=== PATIENT | female | born 1965 | race Caucasian/White ===

== ENCOUNTER → 2020-08-03 10:28 | Outpatient (BNVA) | payer OTHER, SELFPAY | PROVIDERS: PCP Internal Medicine; Referring Provider Internal Medicine; Visit Provider Internal Medicine | DX: J44.9 Chronic obstructive pulmonary disease, unspecified (principal); R09.02 Hypoxemia; Z99.81 Dependence on supplemental oxygen; Z79.51 Long term (current) use of inhaled steroids | CPT/HCPCS: 99214 ==

== ENCOUNTER 2020-08-27 10:56 | Emergency (ER) | payer OTHER, SELFPAY ==
[2020-08-27 10:59] VITALS: BP 130/80; BP 140/87; PULSE 89; PULSE 92; RESP 20; TEMP 37; O2SAT 95; O2SAT 97; BMI 24.7
--- NOTE | 2020-08-27 11:00 | ECG_ITS ---
Test Reason : SOB Blood Pressure : / mmHG Vent. Rate : 083 BPM Atrial Rate : 083 BPM P-R Int : 160 ms QRS Dur : 102 ms QT Int : 396 ms P-R-T Axes : 069 -63 054 degrees QTc Int : 465 ms Normal sinus rhythm Left axis deviation Incomplete right bundle branch block Abnormal ECG When compared with ECG of 18-JAN-2017 13:31, No significant change was found Referred By: Yoko Sharp Electronically Signed By:JONI ZUNIGA MD
--- NOTE | 2020-08-27 11:00 | ED.SOB ---
HPI - SOB/Dyspnea General Chief Complaint: Dyspnea Stated Complaint: SOB, ASTHMA, COPD Time Seen by Provider: 08/27/20 11:00 Source: patient Mode of arrival: ambulatory Limitations: no limitations History of Present Illness MD elicited complaint: shortness of breath and asthma attack Pertinent past history: COPD and asthma Onset (ago): day(s) (since 2am today) Timing: constant Severity: moderate Exacerbating factors: coughing Relieving factors: oxygen and bronchodilators Known history of: COPD and asthma Associated symptoms: cough Treatment prior to arrival: oxygen and bronchodilator (took a treatment at home, EMS noted 96% on RA) Related Data Home Medications Medication Instructions Recorded Confirmed ipratropium 0.5 mg-albuterol 3 mg ml INHALATION Q6H PRN 07/17/20 08/03/20 (2.5 mg base)/3 mL nebulization soln meclizine 25 mg tablet 25 mg PO DAILY PRN 07/17/20 08/03/20 mometasone-formoterol HFA 200 2 puff INHALATION BID 07/17/20 08/03/20 mcg-5 mcg/actuation aerosol inhaler atenolol 25 mg tablet 25 mg PO DAILY 08/03/20 08/03/20 cholecalciferol (vitamin D3) 25 25 mcg PO DAILY 08/03/20 08/03/20 mcg (1,000 unit) tablet sumatriptan succinate 25 mg tablet 25 mg PO DAILY PRN 08/03/20 08/03/20 Previous Rx's Medication Instructions Recorded albuterol sulfate 90 mcg/actuation 2 puff PO Q6H PRN 30 Days #18 g 08/04/20 aerosol inhaler albuterol sulfate 1.25 mg INHALATION Q4-6H PRN #75 ml 08/27/20 azithromycin See Rx Instructions .ROUTE 08/27/20 .COMPLEX #6 tab prednisone 40 mg PO DAILY 5 Days #10 tab 08/27/20 Allergies Allergy/AdvReac Type Severity Reaction Status Date / Time ibuprofen [IBUPROFEN] Allergy Severe ASTHMA , Verified 08/03/20 10:52 shortness of breath amoxicillin Allergy Unknown shortness Verified 08/03/20 10:52 of breath aspirin [ASPIRIN] Allergy Unknown ASTHMA, Verified 08/03/20 10:52 shortness of breath latex [LATEX] Allergy Unknown UNKNOWN Verified 08/03/20 10:52 penicillamine Allergy Unknown Unknown Verified 08/03/20 10:52 montelukast AdvReac Severe headaches Verified 08/03/20 10:57 Review of Systems Review of Systems: Constitutional : No Fever, No Chills ENT/Mouth : No sore throat, No Rhinorrhea, No Swallowing Difficulty Eyes: No Eye Pain, No Swelling, No Redness Cardiovascular : No Chest Pain, positive SOB, No Orthopnea, no Edema Respiratory : No Cough, No Sputum, No Wheezing, positive dyspnea Gastrointestinal : No Nausea, No Vomiting, No Diarrhea, No abdominal Pain, No Hematochezia, No Melena Genitourinary : No Dysuria, No Urinary Frequency, No Hematuria Musculoskeletal : No joint pain, No Myalgias Skin : No Skin Lesions, No rash Neuro : No Weakness, No Numbness, No Dizziness, No Headache Psych : No Anxiety/Panic, No Depression Heme/Lymph: No Bruising, No Lymphadenopathy Endocrine : No Polyuria, No Polydipsia All other systems reviewed and are negative [facility] Past Medical History Medical History COPD (chronic obstructive pulmonary disease) Hypoxemia requiring supplemental oxygen Social History Social History (Updated 08/27/20 @ 11:04 by Yoko Sharp DO) Smoking Status: Never smoker Smoked in Last 30 Days: No Use of substances other than those prescribed or required for medical reasons: No Advance Directives: No Advance Directives Information Provided: Yes Physical Exam Vital Signs: Vital Signs: Last Vital Signs Temp 98.9 F 08/27/20 11:55 Pulse 95 08/27/20 11:55 Resp 16 08/27/20 11:55 BP 122/69 08/27/20 11:55 Pulse Ox 99 08/27/20 11:55 Body Mass Index 24.7 Appearance: Alert. Oriented X3. No acute distress. slight anxiety Eyes: Pupils equal, round and reactive to light. ENT: Pharynx normal. Neck: Normal inspection. Neck supple. CVS: Normal heart rate and rhythm. Pulses normal. Respiratory: No respiratory distress. Breath sounds decreased Abdomen: Soft and nontender. Skin: Skin warm and dry. Normal skin color. Normal skin turgor. Extremities: No lower extremity edema. No calf ttp Neuro: Oriented X 3. No motor deficit. No sensory deficit. Course Course Course Narrative: patient feels much better at this time 94% on RA baseline home 91% walking sat 94% MDM - SOB/Dyspnea MDM Narrative Medical decision making narrative: 54 yo female with COPD and asthma here with feeling dyspnea since 2am, no recent URI or sick contacts, no steroids at home, will need labs, neb treatment, EKG, CXR, IV steroids - very mild anticipate improvement and DC home. Reports consistent with her typical asthma - no pleuritic chest pain, no signs of DVT doubt PE, doubt ACS Lab Data Result diagrams: 08/27/20 11:12 08/27/20 11:12 Labs: Lab Results 08/27/20 08/27/20 08/27/20 Range/Units 11:12 11: 11:12 WBC 8.2 (4.8-10.8) X10*3/uL RBC 4.41 (4.20-5.50) X10*6/uL Hgb 13.8 (12.0-16.0) g/dl Hct 41.8 (37-47) % MCV 94.8 (80-98) fL MCH 31.3 (27.0-33.0) pg MCHC 33.0 (31.0-35.0) g/dl RDW 11.8 (11.0-16.0) % Plt Count 342 (160-400) X10*3/uL MPV 9.1 L (9.4-12.3) fL Immature Gran % (Auto) 0.1 (0.0-0.4) % Neut % (Auto) 50.9 (45-73) % Lymph % (Auto) 33.5 (20-40) % [place] % (Auto) 7.1 (2-11) % Eos % (Auto) 7.8 H (0-4) % Baso % (Auto) 0.6 (0-2) % Lymph # (Auto) 2.7 (1.2-4.9) X10*3/uL [place] # (Auto) 0.6 (0.1-1.2) X10*3/uL Eos # (Auto) 0.6 H (0.0-0.4) X10*3/uL Baso # (Auto) 0.1 (0.0-0.2) X10*3/uL Abs Immat Gran (auto) 0.01 (0.00-0.03) X10*3/uL Absolute Neuts (auto) 4.2 (2.0-8.3) X10*3/uL Absolute Nucleated RBC 0.000 (0.0-0.012) X10*3/uL Nucleated RBC % (auto) 0.0 (0.0-0.2) /100WBC Hold Blue Top SEE NOTE Sodium 142 (135-145) mmol/L Potassium 4.1 (3.3-5.1) mmol/l Chloride 105 (96-108) mmol/L Carbon Dioxide 30 H (22-29) mmol/L Anion Gap 11 L (12-20) BUN 11 (9-16) mg/dL Creatinine 0.76 (0.5-1.4) mg/dL Estim Creat Clear Calc 75.2 Estimated GFR > 60 Random Glucose 84 (60-115) mg/dL Calcium 9.1 (8.4-10.2) mg/dL Magnesium 2.1 (1.6-2.6) mg/dL Total Bilirubin 0.4 (0.0-1.0) mg/dL Direct Bilirubin 0.2 (0.0-0.5) mg/dL AST 32 H (5-31) U/L ALT 38 H (0-31) U/L Alkaline Phosphatase 89 (39-117) U/L Troponin I High Sens (<3.5-17.0) ng/L B-Natriuretic Peptide (<100) pg/mL Total Protein 6.7 (6.5-8.0) g/dL Albumin 4.3 (3.5-5.0) g/dL 08/27/20 Range/Units 11:12 WBC (4.8-10.8) X10*3/uL RBC (4.20-5.50) X10*6/uL Hgb (12.0-16.0) g/dl Hct (37-47) % MCV (80-98) fL MCH (27.0-33.0) pg MCHC (31.0-35.0) g/dl RDW (11.0-16.0) % Plt Count (160-400) X10*3/uL MPV (9.4-12.3) fL Immature Gran % (Auto) (0.0-0.4) % Neut % (Auto) (45-73) % Lymph % (Auto) (20-40) % [place] % (Auto) (2-11) % Eos % (Auto) (0-4) % Baso % (Auto) (0-2) % Lymph # (Auto) (1.2-4.9) X10*3/uL [place] # (Auto) (0.1-1.2) X10*3/uL Eos # (Auto) (0.0-0.4) X10*3/uL Baso # (Auto) (0.0-0.2) X10*3/uL Abs Immat Gran (auto) (0.00-0.03) X10*3/uL Absolute Neuts (auto) (2.0-8.3) X10*3/uL Absolute Nucleated RBC (0.0-0.012) X10*3/uL Nucleated RBC % (auto) (0.0-0.2) /100WBC Hold Blue Top Sodium (135-145) mmol/L Potassium (3.3-5.1) mmol/l Chloride (96-108) mmol/L Carbon Dioxide (22-29) mmol/L Anion Gap (12-20) BUN (9-16) mg/dL Creatinine (0.5-1.4) mg/dL Estim Creat Clear Calc Estimated GFR Random Glucose (60-115) mg/dL Calcium (8.4-10.2) mg/dL Magnesium (1.6-2.6) mg/dL Total Bilirubin (0.0-1.0) mg/dL Direct Bilirubin (0.0-0.5) mg/dL AST (5-31) U/L ALT (0-31) U/L Alkaline Phosphatase (39-117) U/L Troponin I High Sens < 3.5 (<3.5-17.0) ng/L B-Natriuretic Peptide 13 (<100) pg/mL Total Protein (6.5-8.0) g/dL Albumin (3.5-5.0) g/dL ECG Data Attestation: I personally reviewed and interpreted this ECG as follows: ECG interpretation date: 08/27/20 ECG interpretation time: 11:23 Interpretation: Rate: 83 Rhythm: NSR [place]: left Normal P waves. Normal MARIANO. incomplete RBBB ST T wave : normal qTC: normal prior studies: no acute ischemia, unchanged 2017 The study has been interpreted contemporaneously by me. . Discharge Plan Discharge Clinical Impression: COPD (chronic obstructive pulmonary disease) Qualifiers: COPD type: COPD with acute exacerbation Qualified Code(s): J44.1 - Chronic obstructive pulmonary disease with (acute) exacerbation Patient Disposition: Home, Self-Care Instructions: COPD (Chronic Obstructive Pulmonary Disease) (ED) Additional Instructions: return to ED for any worsening symptoms or concerns Prescriptions: New azithromycin 500 mg tablet See Rx Instructions .ROUTE .COMPLEX Qty: 6 RF: 0 albuterol sulfate 2.5 mg /3 mL (0.083 %) solution for nebulization 1.25 mg inhalation Q4-6H PRN (Reason: shortness of breath or wheezing) Qty: 75 RF: 0 prednisone 20 mg tablet 40 mg PO DAILY 5 Days Qty: 10 RF: 0 No Action albuterol sulfate 90 mcg/actuation HFA aerosol inhaler 2 puff PO Q6H PRN (Reason: shortness of breath or wheezing) 30 Days Qty: 18 RF: 1 Dulera 200-5 mcg/actuation HFA aerosol inhaler 2 puff inhalation BID RF: 0 ipratropium-albuterol 0.5 mg-3 mg(2.5 mg base)/3 mL solution for nebulization inhalation Q6H PRNRF: 0 meclizine 25 mg tablet 25 mg PO DAILY PRNRF: 0 cholecalciferol (vitamin D3) 25 mcg (1,000 unit) tablet 25 mcg PO DAILY RF: 0 sumatriptan succinate 25 mg tablet 25 mg PO DAILY PRNRF: 0 atenolol 25 mg tablet 25 mg PO DAILY RF: 0 Referrals: Michael Rosen MD [Primary Care Provider] - 2 days (if not better)
--- NOTE | 2020-08-27 11:01 | XR_ITS ---
EXAMINATION: XR CHEST CLINICAL INFORMATION: Dyspnea COMPARISON: March 27, 2020 TECHNIQUE: AP portable view of the chest was obtained. FINDINGS: There is mild hyperinflation. No acute parenchymal disease, pneumothorax, or pleural effusion. Heart normal size. No evidence of pulmonary edema. XR/XR chest 1V IMPRESSION: No acute disease.
[2020-08-27] MEDS: Albuterol Sulfate (0.083%) 2.5 MG/3 ML VIAL.NEB 5 MG INHALE (11:15)
[2020-08-27] MEDS: methylPREDNISolone Sod Succ/PF 125 MG/2 ML VIAL 60 MG IVPUSH (11:17)
[2020-08-27 11:26] LABS: MANUAL DIFF FLAG NO
[2020-08-27 11:27] VITALS: PULSE 95; RESP 20; TEMP 37; O2SAT 96
[2020-08-27 11:27] LABS: Basophils Absolute Auto 0.1 X10*3/uL (0.0-0.2); Basophils Percent Auto 0.6 % (0-2); Eosinophils Absolute Auto 0.6 X10*3/uL (0.0-0.4); Eosinophils Percent Auto 7.8 % (0-4); Hematocrit 41.8 % (37-47); Hemoglobin 13.8 g/dl (12.0-16.0); Imm Gran Abs Auto 0.01 X10*3/uL (0.00-0.03); Imm Gran Pct Auto 0.1 % (0.0-0.4); Lymphocytes Absolute Auto 2.7 X10*3/uL (1.2-4.9); Lymphocytes Percent Auto 33.5 % (20-40); Mean Corpuscular Hemoglobin 31.3 pg (27.0-33.0); Mean Corpuscular Volume 94.8 fL (80-98); Mean Platelet Volume 9.1 fL (9.4-12.3); Monocytes Absolute Auto 0.6 X10*3/uL (0.1-1.2); Monocytes Percent Auto 7.1 % (2-11); Neutrophils Absolute Auto 4.2 X10*3/uL (2.0-8.3); Neutrophils Percent Auto 50.9 % (45-73); Platelet Count 342 X10*3/uL (160-400); Red Blood Count 4.41 X10*6/uL (4.20-5.50); Red Cell Distribution Width 11.8 % (11.0-16.0); White Blood Count 8.2 X10*3/uL (4.8-10.8)
[2020-08-27 11:49] LABS: Alanine Aminotransferase 38 U/L (0-31); Albumin Level 4.3 g/dL (3.5-5.0); Alkaline Phosphatase 89 U/L (39-117); Anion Gap 11 (12-20); Aspartate Amino Transferase 32 U/L (5-31); Bilirubin Direct 0.2 mg/dL (0.0-0.5); Bilirubin Total 0.4 mg/dL (0.0-1.0); Blood Urea Nitrogen 11 mg/dL (9-16); Calcium 9.1 mg/dL (8.4-10.2); Carbon Dioxide 30 mmol/L (22-29); Chloride 105 mmol/L (96-108); Creatinine Clr Calc Pharmacy 75.2; Estimated Glomerular Filt Rate > 60; Glucose Random 84 mg/dL (60-115); Magnesium 2.1 mg/dL (1.6-2.6); Potassium 4.1 mmol/l (3.3-5.1); Sodium 142 mmol/L (135-145); Total Protein 6.7 g/dL (6.5-8.0)
[2020-08-27 11:55] VITALS: BP 122/69; PULSE 95; RESP 16; TEMP 37.2; O2SAT 99
[2020-08-27 11:56] LABS: B Type Natriuretic Peptide 13 pg/mL (<100); Troponin-I High Sensitivity < 3.5 ng/L (<3.5-17.0)
[2020-08-27 13:49] VITALS: BP 140/84; PULSE 84; RESP 18; TEMP 37; O2SAT 98
== END 2020-08-27 13:54 | disposition home or self-care (01) ==
PROVIDERS: Emergency Provider Emergency Medicine; PCP Internal Medicine
DX: J44.1 Chronic obstructive pulmonary disease with (acute) exacerbation (principal); R06.02 Shortness of breath; Z79.899 Other long term (current) drug therapy; Z20.828 Contact with and (suspected) exposure to other viral communicable diseases
CPT/HCPCS: 36415; 71045; 80048; 80076; 83735; 83880; 84484; 85025; 93005; 94640; 96374; 99284; J2930; U0003

== ENCOUNTER → 2020-08-31 10:21 | Outpatient (BNVA) | payer OTHER, SELFPAY | PROVIDERS: PCP Internal Medicine; Visit Provider Internal Medicine | DX: J44.9 Chronic obstructive pulmonary disease, unspecified (principal); R09.02 Hypoxemia; Z79.899 Other long term (current) drug therapy; Z99.81 Dependence on supplemental oxygen | CPT/HCPCS: 99212 ==

== ENCOUNTER → 2020-10-30 10:07 | Outpatient (BNVA) | payer OTHER, SELFPAY | PROVIDERS: PCP Internal Medicine; Visit Provider Internal Medicine | DX: J44.9 Chronic obstructive pulmonary disease, unspecified (principal); J30.9 Allergic rhinitis, unspecified; R09.02 Hypoxemia; Z99.81 Dependence on supplemental oxygen | CPT/HCPCS: 99212 ==

== ENCOUNTER 2020-11-15 03:29 | Inpatient (IN) | payer OTHER, SELFPAY ==
[2020-11-15] VITALS (12 sets, daily range): BP systolic 122–150; BP diastolic 70–85; PULSE 90–112; RESP 13–22; TEMP 36.1–37.1; O2SAT 93–99; BMI 24.8
--- NOTE | 2020-11-15 03:33 | ECG_ITS ---
Test Reason : SOB Blood Pressure : / mmHG Vent. Rate : 091 BPM Atrial Rate : 091 BPM P-R Int : 134 ms QRS Dur : 088 ms QT Int : 372 ms P-R-T Axes : 062 -55 071 degrees QTc Int : 457 ms Sinus rhythm Incomplete RBBB Left anterior fascicular block Abnormal ECG When compared with ECG of 27-AUG-2020 11:17, No significant changes seen Referred By: Nadia Prather Electronically Signed By:Josh Cline
--- NOTE | 2020-11-15 03:33 | XR_ITS ---
EXAMINATION: XR CHEST CLINICAL INFORMATION: Shortness of breath COMPARISON: 08/27/2020 TECHNIQUE: Frontal view of the chest was obtained. FINDINGS: The lungs are hyperinflated, suggesting underlying COPD. Linear right basilar opacity favors subsegmental atelectasis or scarring. No region of consolidation is seen. No evidence of pneumothorax, pleural effusion, or pulmonary edema. The cardiomediastinal contour is unremarkable. No acute osseous findings are seen. XR/XR chest 1V IMPRESSION: Linear right basilar atelectasis versus scarring, without additional acute findings.
[2020-11-15] MEDS: Albuterol Sulfate (0.083%) 2.5 MG/3 ML VIAL.NEB 5 MG INHALE (03:46)
[2020-11-15] MEDS: Magnesium Sulfate/H2O 2 GM/50 ML PIGGYBACK IV (03:47)
[2020-11-15] MEDS: Albuterol/Iprat 2.5/0.5MG 3 ML AMPUL.NEB INHALE ×4 (03:49→19:48)
--- NOTE | 2020-11-15 03:51 | ED.GENADULT ---
HPI - General Adult General Chief complaint: Asthma Stated complaint: DIFFICULTY BREATHING Time Seen by Provider: 11/15/20 03:32 Source: patient and EMS Mode of arrival: EMS Limitations: no limitations History of Present Illness HPI narrative: 55-year-old female with history of COPD, O2 dependent 2 L, started to have shortness of breath at home before arrival, patient administrated her own albuterol via nebulizer with no relief of her symptoms, on EMS arrival O2 sat 91%, patient was transported to the hospital still in respiratory distress, patient declined chest pain. Patient declined recent sickness or exposure to a sick contact. Patient declines smoking history. Related Data Home Medications Medication Instructions Recorded Confirmed ipratropium 0.5 mg-albuterol 3 mg ml INHALATION Q6H PRN 07/17/20 08/03/20 (2.5 mg base)/3 mL nebulization soln mometasone-formoterol HFA 200 2 puff INHALATION BID 07/17/20 08/03/20 mcg-5 mcg/actuation aerosol inhaler atenolol 25 mg tablet 25 mg PO DAILY 08/03/20 08/03/20 cholecalciferol (vitamin D3) 25 25 mcg PO DAILY 08/03/20 08/03/20 mcg (1,000 unit) tablet sumatriptan succinate 25 mg tablet 25 mg PO DAILY PRN 08/03/20 08/03/20 Previous Rx's Medication Instructions Recorded albuterol sulfate 90 mcg/actuation 2 puff PO Q6H PRN 30 Days #18 g 08/04/20 aerosol inhaler albuterol sulfate 1.25 mg INHALATION Q4-6H PRN #75 ml 08/27/20 levofloxacin 500 mg tablet 500 mg PO DAILY 7 Days #7 tab 10/30/20 meclizine 25 mg tablet 25 mg PO DAILY PRN #30 tab 10/30/20 prednisone 10 mg tablet 10 mg PO BID 5 Days #10 tab 10/30/20 Allergies Allergy/AdvReac Type Severity Reaction Status Date / Time ibuprofen [IBUPROFEN] Allergy Severe ASTHMA , Verified 10/30/20 10:20 shortness of breath amoxicillin Allergy Unknown shortness Verified 10/30/20 10:20 of breath aspirin [ASPIRIN] Allergy Unknown ASTHMA, Verified 10/30/20 10:20 shortness of breath latex [LATEX] Allergy Unknown UNKNOWN Verified 01/11/21 10:20 penicillamine Allergy Unknown Unknown Verified 10/30/20 10:20 montelukast AdvReac Severe headaches Verified 10/30/20 10:20 Review of Systems Review of Systems: All other systems are reviewed and are negative Constitutional: Reports as per HPI and Reports no additional constitutional complaints Eyes: Reports as per HPI and Reports no additional eye complaints Reports system reviewed and no additional complaints, except as documented Cardiovascular: Reports as per HPI and Reports no additional cardiovascular complaints Respiratory: Reports as per HPI and Reports no additional respiratory complaints Gastrointestinal: Reports as per HPI and Reports no additional gastrointestinal complaints Genitourinary: Reports no additional female genitourinary complaints Musculoskeletal: Reports no additional musculoskeletal complaints Skin/Breast: Reports system reviewed and no additional complaints, except as docu Psychiatric: Reports no additional psychiatric complaints Endocrine: Reports no additional endocrine complaints Hematologic/Lymphatic: Reports no additional hematologic/lymphatic complaints Allergic/Immunologic: Reports no additional allergic/immunologic complaints Reports system reviewed and no additional complaints, except as documented and Reports Abnormal speech present [facility] Past Medical History Medical History Allergic rhinosinusitis COPD (chronic obstructive pulmonary disease) Hypoxemia requiring supplemental oxygen Social History Social History Alcohol intake: unknown Smoking Status: Former smoker Use of substances other than those prescribed or required for medical reasons: No Advance Directives: No Physical Exam Vital Signs: Vital Signs: Last Vital Signs Temp 98.4 F 11/15/20 03:38 Pulse 90 11/15/20 03:50 Resp 22 H 11/15/20 04:08 BP 140/85 H 11/15/20 03:38 Pulse Ox 99 11/15/20 03:38 Body Mass Index 24.8 Vital signs have been reviewed as normal and appeared to be correct. Blood pressure: Hypertensive. Heart rate normal. Respiration rate normal. Temperature normal. Oxygen saturation normal. Appearance: Alert. Oriented X3. Mild acute respiratory distress. Head: Normal external exam. Normocephalic. Atraumatic. No [place] signs noted. No raccoon eyes noted Eyes: PERRLA. EOMI. Conjunctiva and sclera normal. Eyelids normal. ENT: EAC normal. TM's Normal. Pharynx normal. Uvula midline. Moist mucous membranes. No trismus noted. No drooling noted. No muffled voice noted. Neck: Normal inspection. Neck supple. FROM. No adenopathy. Thyroid Normal. No meningeal signs. No neck mass noted. CVS: Normal heart rate and rhythm. Heart sound normal. No murmurs noted. Pulses normal throughout. Respiratory: No respiratory distress. Painless inspiration. Breath sounds decreased bilaterally. Mild diffuse expiratory wheezes, no rales/rhonchi noted. Chest nontender. No accessory muscle usage noted or decreased air movement noted. Abdomen: Soft and nontender. Bowel sounds normal in all 4 quadrants. No distention noted. No organomegaly noted. No visible injury noted. Back: No CVA tenderness. Full range of motion noted. Skin: Skin warm and dry. Normal skin color. Normal skin turgor. No rashes/lesions/lacerations noted. Extremities: No lower extremity edema. Extremities exhibit normal range of motion. Extremities nontender. Neuro: Oriented X 3. No motor deficit. No sensory deficit. Reflexes normal. Course Course Course Narrative: Assessment and plan 55-year-old female with history of COPD with O2 dependent, presented with COPD exacerbation and wheezing, no improvement after self administration of albuterol nebulizer at home, patient received continuous albuterol and Solu-Medrol and magnesium with partial improvement but patient still having difficulty breathing. Will admit for further bronchodilator therapy. Medical Decision Making Lab Data Lab results reviewed: Yes I reviewed the patient's lab results. Result diagrams: 11/15/20 03:55 Labs: Lab Results 11/15/20 11/15/20 11/15/20 Range/Units 03:54 03:54 03:54 WBC (4.8-10.8) X10*3/uL RBC (4.20-5.50) X10*6/uL Hgb (12.0-16.0) g/dl Hct (37-47) % MCV (80-98) fL MCH (27.0-33.0) pg MCHC (31.0-35.0) g/dl RDW (11.0-16.0) % Plt Count (160-400) X10*3/uL MPV (9.4-12.3) fL Immature Gran % (Auto) (0.0-0.4) % Neut % (Auto) (45-73) % Lymph % (Auto) (20-40) % [place] % (Auto) (2-11) % Eos % (Auto) (0-4) % Baso % (Auto) (0-2) % Lymph # (Auto) (1.2-4.9) X10*3/uL [place] # (Auto) (0.1-1.2) X10*3/uL Eos # (Auto) (0.0-0.4) X10*3/uL Baso # (Auto) (0.0-0.2) X10*3/uL Abs Immat Gran (auto) (0.00-0.03) X10*3/uL Absolute Neuts (auto) (2.0-8.3) X10*3/uL Absolute Nucleated RBC (0.0-0.012) X10*3/uL Nucleated RBC % (auto) (0.0-0.2) /100WBC Lactic Acid 0.8 (0.5-2.0) mmol/L Troponin I High Sens < 3.5 (<3.5-17.0) ng/L B-Natriuretic Peptide 10 (<100) pg/mL Lipase 19 (8-78) U/L COVID-19 (AL) (Negative) COVID-19 Clin Com 11/15/20 11/15/20 Range/Units 03:55 03:55 WBC 8.0 (4.8-10.8) X10*3/uL RBC 4.53 (4.20-5.50) X10*6/uL Hgb 14.2 (12.0-16.0) g/dl Hct 43.5 (37-47) % MCV 96.0 (80-98) fL MCH 31.3 (27.0-33.0) pg MCHC 32.6 (31.0-35.0) g/dl RDW 11.7 (11.0-16.0) % Plt Count 329 (160-400) X10*3/uL MPV 8.9 L (9.4-12.3) fL Immature Gran % (Auto) 0.1 (0.0-0.4) % Neut % (Auto) 34.4 L (45-73) % Lymph % (Auto) 47.8 H (20-40) % [place] % (Auto) 10.4 (2-11) % Eos % (Auto) 6.7 H (0-4) % Baso % (Auto) 0.6 (0-2) % Lymph # (Auto) 3.8 (1.2-4.9) X10*3/uL [place] # (Auto) 0.8 (0.1-1.2) X10*3/uL Eos # (Auto) 0.5 H (0.0-0.4) X10*3/uL Baso # (Auto) 0.1 (0.0-0.2) X10*3/uL Abs Immat Gran (auto) 0.01 (0.00-0.03) X10*3/uL Absolute Neuts (auto) 2.8 (2.0-8.3) X10*3/uL Absolute Nucleated RBC 0.000 (0.0-0.012) X10*3/uL Nucleated RBC % (auto) 0.0 (0.0-0.2) /100WBC Lactic Acid (0.5-2.0) mmol/L Troponin I High Sens (<3.5-17.0) ng/L B-Natriuretic Peptide (<100) pg/mL Lipase (8-78) U/L COVID-19 (AL) Negative (Negative) COVID-19 Clin Com See Note Imaging Data Chest x-ray: Radiologist's impression: Linear right basilar atelectasis versus scarring, without additional acute findings. ECG Data Interpretation: Normal sinus rhythm at 91 beats per minutes, left axis deviation, normal intervals, no ST-T changes. Discharge Plan Discharge Clinical Impression: COPD (chronic obstructive pulmonary disease) Patient Disposition: Admitted As Inpatient Prescriptions: No Action albuterol sulfate 90 mcg/actuation HFA aerosol inhaler 2 puff PO Q6H PRN (Reason: shortness of breath or wheezing) 30 Days Qty: 18 RF: 1 meclizine 25 mg tablet 25 mg PO DAILY PRN (Reason: dizziness) Qty: 30 RF: 1 albuterol sulfate 2.5 mg /3 mL (0.083 %) solution for nebulization 1.25 mg inhalation Q4-6H PRN (Reason: shortness of breath or wheezing) Qty: 75 RF: 0 Dulera 200-5 mcg/actuation HFA aerosol inhaler 2 puff inhalation BID RF: 0 ipratropium-albuterol 0.5 mg-3 mg(2.5 mg base)/3 mL solution for nebulization inhalation Q6H PRNRF: 0 levofloxacin 500 mg tablet 500 mg PO DAILY 7 Days Qty: 7 RF: 0 prednisone 10 mg tablet 10 mg PO BID 5 Days Qty: 10 RF: 1 cholecalciferol (vitamin D3) 25 mcg (1,000 unit) tablet 25 mcg PO DAILY RF: 0 sumatriptan succinate 25 mg tablet 25 mg PO DAILY PRNRF: 0 atenolol 25 mg tablet 25 mg PO DAILY RF: 0
--- NOTE | 2020-11-15 04:00 | PC.NURSE ---
Patient medicated per emar as noted with the exception of the methylprednisolone sod succ/125 mg in 0.9 normal saline. I pushed methyprednisolone 125 mg iv push which was the actual medication order that the MD ordered.
[2020-11-15 04:02] LABS: Basophils Absolute Auto 0.1 X10*3/uL (0.0-0.2); Basophils Percent Auto 0.6 % (0-2); Eosinophils Absolute Auto 0.5 X10*3/uL (0.0-0.4); Eosinophils Percent Auto 6.7 % (0-4); Hematocrit 43.5 % (37-47); Hemoglobin 14.2 g/dl (12.0-16.0); Imm Gran Abs Auto 0.01 X10*3/uL (0.00-0.03); Imm Gran Pct Auto 0.1 % (0.0-0.4); Lymphocytes Absolute Auto 3.8 X10*3/uL (1.2-4.9); Lymphocytes Percent Auto 47.8 % (20-40); MANUAL DIFF FLAG NO; Mean Corpuscular HGB Conc 32.6 g/dl (31.0-35.0); Mean Corpuscular Hemoglobin 31.3 pg (27.0-33.0); Mean Platelet Volume 8.9 fL (9.4-12.3); Monocytes Absolute Auto 0.8 X10*3/uL (0.1-1.2); Monocytes Percent Auto 10.4 % (2-11); Neutrophils Absolute Auto 2.8 X10*3/uL (2.0-8.3); Neutrophils Percent Auto 34.4 % (45-73); Platelet Count 329 X10*3/uL (160-400); Red Blood Count 4.53 X10*6/uL (4.20-5.50); Red Cell Distribution Width 11.7 % (11.0-16.0)
[2020-11-15 04:26] LABS: COVID-19 Test Negative (Negative); IDNOW Serial# 9DD0AD1C
[2020-11-15 04:32] LABS: Lactic Acid 0.8 mmol/L (0.5-2.0)
[2020-11-15 04:35] LABS: Lipase 19 U/L (8-78)
[2020-11-15 04:42] LABS: B Type Natriuretic Peptide 10 pg/mL (<100); Troponin-I High Sensitivity < 3.5 ng/L (<3.5-17.0)
[2020-11-15 05:22] LABS: Glucose Urine UA NEG (NEG); Leukocyte Esterase Urine NEG (NEG); Nitrite Urine NEG (NEG); PH 6.5 (5.0-8.0); Specific Gravity - Urine 1.015 (1.005-1.025); Urine Blood NEG (NEG); Urine Ketones NEG (NEG); Urine Protein NEG (NEG-TRACE)
--- NOTE | 2020-11-15 05:26 | P.HPHOSP_ITS ---
History of Present Illness Date of Service: 11/15/20 Chief Complaint: Shortness of breath 55 year female with history of oxygen dependent asthm/COPD here with SOB that started last night and not improving despite repeat use of inhalers. She has cough, no fever or chills. Xray is unremarkable. Treated with IV steroid, bronchodilators. Review of Systems Review of Systems: Gen: no fever Resp: +sob, no cough CV: no chest, no LEON, no leg edema GI: No n/v, no abd pain Neuro: No confusion [facility], [facility] Medical History (Updated 11/15/20 @ 06:24 by Renard Fraga MD) Allergic rhinosinusitis COPD (chronic obstructive pulmonary disease) Hypoxemia requiring supplemental oxygen Social History Alcohol intake: unknown Smoking Status: Former smoker Use of substances other than those prescribed or required for medical reasons: No Advance Directives: No Meds Allergies Allergy/AdvReac Type Severity Reaction Status Date / Time ibuprofen [IBUPROFEN] Allergy Severe ASTHMA , Verified 10/30/20 10:20 shortness of breath amoxicillin Allergy Unknown shortness Verified 10/30/20 10:20 of breath aspirin [ASPIRIN] Allergy Unknown ASTHMA, Verified 10/30/20 10:20 shortness of breath latex [LATEX] Allergy Unknown UNKNOWN Verified 10/30/20 10:20 penicillamine Allergy Unknown Unknown Verified 10/30/20 10:20 montelukast AdvReac Severe headaches Verified 10/30/20 10:20 Home Medications Medication Instructions Recorded Confirmed Type mometasone-formoterol HFA 200 2 puff INHALATION BID 07/17/20 08/03/20 History mcg-5 mcg/actuation aerosol inhaler atenolol 25 mg tablet 25 mg PO DAILY 08/03/20 11/15/20 History cholecalciferol (vitamin D3) 25 25 mcg PO DAILY 08/03/20 08/03/20 History mcg (1,000 unit) tablet sumatriptan succinate 25 mg tablet 25 mg PO DAILY PRN 08/03/20 11/15/20 History Physical Exam Vital Signs and Narrative: Vital Signs: Last Vital Signs Temp 98.4 F 11/15/20 03:38 Pulse 90 11/15/20 03:50 Resp 22 H 11/15/20 04:08 BP 140/85 H 11/15/20 03:38 Pulse Ox 99 11/15/20 03:38 Body Mass Index 24.8 Constitutional Awake and Alert, No apparent distress Neck Supple, No lymphadenopathy Cardiovascular RRR, No M/R/G, S1 S2, No S3 S4, No pedal edema Respiratory Lungs clear, tight air movment, no wheeze Gastrointestinal Non tender, Non-distended Skin No rash Neurological Alert & oriented x3 Psychological Appropriate affect Results Labs CBC and Chem 7: 11/15/20 03:55 Labs: Laboratory Results - last 24 hr 11/15/20 11/15/20 11/15/20 03:54 03:54 03:54 MCV MCH MCHC RDW Plt Count MPV Immature Gran % (Auto) Neut % (Auto) Lymph % (Auto) George % (Auto) Eos % (Auto) Baso % (Auto) Lymph # (Auto) George # (Auto) Eos # (Auto) Baso # (Auto) Abs Immat Gran (auto) Absolute Neuts (auto) Absolute Nucleated RBC Nucleated RBC % (auto) Lactic Acid 0.8 Troponin I High Sens < 3.5 B-Natriuretic Peptide 10 Lipase 19 COVID-19 (AL) COVID-19 Clin Com 11/15/20 11/15/20 03:55 03:55 MCV 96.0 MCH 31.3 MCHC 32.6 RDW 11.7 Plt Count 329 MPV 8.9 L Immature Gran % (Auto) 0.1 Neut % (Auto) 34.4 L Lymph % (Auto) 47.8 H George % (Auto) 10.4 Eos % (Auto) 6.7 H Baso % (Auto) 0.6 Lymph # (Auto) 3.8 George # (Auto) 0.8 Eos # (Auto) 0.5 H Baso # (Auto) 0.1 Abs Immat Gran (auto) 0.01 Absolute Neuts (auto) 2.8 Absolute Nucleated RBC 0.000 Nucleated RBC % (auto) 0.0 Lactic Acid Troponin I High Sens B-Natriuretic Peptide Lipase COVID-19 (AL) Negative COVID-19 Clin Com See Note Imaging Radiologist's Impressions: Impressions Chest X-Ray 11/15/20 03:33 IMPRESSION: Linear right basilar atelectasis versus scarring, without additional acute findings. Assessment and Plan (1) COPD with exacerbation: Status: Acute 55 year female with acute exacerbation of copd, negative covid COPD exacerbation--better already -IV steroid -Bronchodilators by Neb Migraine Sumatriptan PRN HTN--Atenolol Lovenox for dvt prophylaxis
[2020-11-15 05:40] LABS: Appearance Urine CLEAR; Color Urine YELLOW
--- NOTE | 2020-11-15 06:33 | PC.NURSE ---
Patient less anxious but states that she still feels not well. She said her anxiety is better. Breathing is less labored than when she arrived at the ED. Patient medicated per emar as noted.
[2020-11-15 06:53] LABS: Alanine Aminotransferase 34 U/L (0-31); Albumin Level 4.1 g/dL (3.5-5.0); Alkaline Phosphatase 88 U/L (39-117); Anion Gap 12 (12-20); Aspartate Amino Transferase 32 U/L (5-31); Bilirubin Direct < 0.2 mg/dL (0.0-0.5); Bilirubin Total 0.4 mg/dL (0.0-1.0); Blood Urea Nitrogen 16 mg/dL (9-16); Calcium 8.8 mg/dL (8.4-10.2); Carbon Dioxide 28 mmol/L (22-29); Chloride 106 mmol/L (96-108); Creatinine Clr Calc Pharmacy 79.1; Estimated Glomerular Filt Rate > 60; Glucose Random 88 mg/dL (60-115); Potassium 4.3 mmol/l (3.3-5.1); Sodium 142 mmol/L (135-145); Total Protein 6.3 g/dL (6.5-8.0)
[2020-11-15] MEDS: Enoxaparin Sodium 40 MG/0.4 ML SYRINGE SUBCUT (07:12)
--- NOTE | 2020-11-15 07:30 | PC.NURSE ---
report taken from baldo garcia pt sitting up in stretcher, rr even/unlabored. pt assisted w standby assist to bathroom, ambulated w/o supplemental o2, no resp distress noted. back to bed, medicated per emar, given breakfast. nad. lua.
[2020-11-15] MEDS: LORazepam 0.5 MG TABLET PO (07:57)
--- NOTE | 2020-11-15 08:51 | PC.NURSE ---
pt refused morning meds, sts the steroids are making me too jumpy and i just had a breathing treatment, i also dont like the way my beta joelle makes me feel .
--- NOTE | 2020-11-15 09:41 | MHC.CM.PN ---
Met with patient in regards to d/c planning. Patient lives with her son, is supposed to use a cane for mobility, but doesn't and has oxygen through [employer], that she only needs intermittently. PCP verified. Patient denies having a HCP. Information provided. Patient declining completing one at this time. IMM explained and signed. Patient states her sister typically drives her home. However, they just had a fight over the phone. Patient may need chair van at d/c. Continue to monitor for d/c needs.
--- NOTE | 2020-11-15 10:57 | PC.NURSE ---
pharmacist at bedside.
[2020-11-15] MEDS: 0.9 % Sodium Chloride Flush 3 ML SYRINGE IVFLUSH ×2 (17:58→21:50)
[2020-11-16] VITALS (10 sets, daily range): BP systolic 113–157; BP diastolic 67–84; PULSE 86–96; RESP 17–19; TEMP 36.3–37.1; O2SAT 93–97
[2020-11-16] MEDS: Albuterol Sulfate (0.042%) 1.25 MG/3 ML VIAL.NEB INHALE (06:42)
[2020-11-16] MEDS: 0.9 % Sodium Chloride Flush 3 ML SYRINGE IVFLUSH ×3 (09:17→20:45)
[2020-11-16] MEDS: atenoloL 25 MG TABLET PO (09:17)
--- NOTE | 2020-11-16 11:45 | MHC.CM.PN ---
CM RECEIVED MESSAGE TO CALL PT'S INSURANCE COMPANY [employer] RECOMMENDING PT BE DISCHARGED WITH [facility], CM WILL LET ATTENDING KNOW.
[2020-11-16] MEDS: Albuterol/Iprat 2.5/0.5MG 3 ML AMPUL.NEB INHALE ×2 (11:55→17:23)
--- NOTE | 2020-11-16 13:41 | MHC.CM.PN ---
CM MET WITH PT REGARDING HER TRANSPORTATION, PT REPORTS BROTHER IS ABLE TO TRANSPORT HER, CM WILL HAVE RESPIRATORY LOAN PT A PORTABLE TANK FOR TRANSPORT, PT REPORTS [facility] NEVER SHOWED UP WHEN SHE HAD AN APPT WITH THEM TO COME TO HER HOUSE, PT REPORTED THEY MAY HAVE GONE TO WRONG DOOR. PT IS MORE ANXIOUS THAN EARLIER THIS MORNING AND REPORTS SHE HAD A THERAPIST WHO SHE DIDN'T LIKE AND HAS A PSYCHIATRIST AT [facility], PT OFFERED CARE TEAM AND PT DECLINED AND DECLINED ASSISTANCE WITH MAKING APPT FOR PSYCHIATRY, PT REPORTS SHE SAW THEM WHEN SHE WAS LAST HERE, PT REPORTS SHE WILL CALL ON HER OWN TO SET UP A PSYCHIATRY APPT AND FIND A NEW THERAPIST ON HER OWN.
--- NOTE | 2020-11-16 15:54 | MHC.CM.PN ---
Addendum entered by Winter Chan RN 11/16/20 16:10: REFERRAL MADE TO [facility] IN ANTICIPATION OF POSSIBLE [facility] ORDERS BY HOSPITALIST. Original Note: CM RECEIVED CALL FROM PT'S INSURANCE PROVIDER [employer] REQUESTING [facility] FOR PT UPON D/C, MESSAGE SENT TO ATTENDING HOSPITALIST.
--- NOTE | 2020-11-16 17:48 | HO.PM.IMPN ---
Subjective Subjective Date of Service: 11/16/20 Interval History: seen and examined reports feeling slightly better this AM, but reports significant LEON when awoken over night for vitals does endorse anxiety relating to her copd but doesnt appear to want anything to help with anxiety ROS General - no fevers or chills Cardiovascular - no chest pain Respiratory - +SOB Abdominal- no abdominal pain, nausea, vomiting, diarrhea Physical Exam Vital Signs: Vital Signs: Last Vital Signs Temp 97.8 F 11/16/20 16:00 Pulse 96 11/16/20 17:25 Resp 19 11/16/20 16:00 BP 133/76 11/16/20 16:00 Pulse Ox 97 11/16/20 16:00 Body Mass Index 24.8 Const: Other: General - no acute distress, appears comfortable Cardiovascular - regular rate and rhythm, S1-S2 Lungs - very dim sounds, tachypnea with minimal exertion Abdomen - soft, nontender, no rebound or guarding Extremities - no edema bilaterally Neuro - awake and alert, no focal deficits Objective Data Current Medications Generic Name Dose Route Start Last Admin Trade Name Miroslava PRN Reason Stop Dose Admin Albuterol Sulfate 2 puff 11/16/20 11:44 Albuterol Sulfate 90 Mcg 8 Gm Inhaler INHALE RQ6H PRN Shortness of Breath Albuterol/Ipratropium 3 ml 11/15/20 08:00 11/16/20 17:23 Albuterol/Iprat 2.5/0.5mg 3 Ml Ampul.Neb INHALE 3 ml RQ6H WHILE AWAKE MEGAN Administration Atenolol 25 mg 11/15/20 09:00 11/16/20 09:17 Atenolol 25 Mg Tablet PO 25 mg DAILY MEGAN Administration Protocol Enoxaparin Sodium 40 mg 11/15/20 06:15 11/16/20 05:17 Enoxaparin Sodium 40 Mg/0.4 Ml Syringe SUBCUT Not Given Q24H MEGAN Meclizine HCl 25 mg 11/15/20 06:05 Meclizine Hcl 25 Mg Tablet PO DAILY PRN dizziness Melatonin 6 mg 11/15/20 18:43 Melatonin 3 Mg Tablet PO BEDTIME PRN Insomnia Methylprednisolone Sodium Succinate 40 mg 11/15/20 15:00 11/16/20 14:14 Methylprednisolone Sod Succ/Pf 40 Mg/Ml Vial IVPUSH 40 mg TID MEGAN Administration Non-Formulary Medication 2 puff 11/16/20 11:25 Mometasone-Formoterol INHALE BID MEGAN Sodium Chloride 3 ml 11/15/20 08:00 11/16/20 14:14 0.9 % Sodium Chloride Flush 3 Ml Syringe IVFLUSH 3 ml QSHIFT MEGAN Administration Sumatriptan Succinate 25 mg 11/15/20 06:05 Sumatriptan Succinate 25 Mg Tablet PO DAILY PRN Migraine Headache Vitamin D 25 mcg 11/17/20 09:00 Cholecalciferol (Vitamin D3) 25 Mcg Tablet PO DAILY [facility] Labs CBC & Chem 7: 11/15/20 03:55 11/15/20 03:56 Microbiology Microbiology Results: Microbiology 11/15/20 03:55 Blood - Venous Blood Culture - Preliminary No growth after 24 hours. 11/15/20 03:55 Blood - Venous Blood Culture - Preliminary No growth after 24 hours. Assessment and Plan (1) COPD with exacerbation: Status: Acute Assessment and Plan: This is a 55 yo F with a PMH of copd, chronic resp failure on home o2 who is admitted for: 1. COPD exacerbation steriods and updrafts baseline inhalers 2. chronic resp failure with hypoxia -- on 2L at night and with exertion at home wean to baseline o2 3. anxiety prn benzos offered -- declined continue other baseline meds
[2020-11-17 03:21] VITALS: BP 111/62; PULSE 83; RESP 16; TEMP 36.6; O2SAT 96
[2020-11-17] MEDS: Enoxaparin Sodium 40 MG/0.4 ML SYRINGE SUBCUT (05:25)
[2020-11-17] MEDS: Albuterol/Iprat 2.5/0.5MG 3 ML AMPUL.NEB INHALE ×2 (06:10→11:41)
[2020-11-17 06:11] VITALS: PULSE 88; O2SAT 96
[2020-11-17 07:16] VITALS: BP 125/69; PULSE 82; RESP 17; TEMP 36.4; O2SAT 95
[2020-11-17 07:50] VITALS: BP 125/69; PULSE 82
[2020-11-17] MEDS: 0.9 % Sodium Chloride Flush 3 ML SYRINGE IVFLUSH (07:50)
[2020-11-17] MEDS: Cholecalciferol (Vitamin D3) 25 MCG TABLET PO (07:50)
[2020-11-17] MEDS: atenoloL 25 MG TABLET PO (07:50)
--- NOTE | 2020-11-17 09:12 | PM.DS ---
DS: Providers Provider Date of Service: 11/17/20 Date of admission: 11/15/20 06:12 Primary care physician: Michael Rosen MD DS: Diagnosis Discharge Diagnosis (1) COPD with exacerbation: Status: Acute (2) Acute and chronic respiratory failure with hypoxia: Status: Acute (3) Anxiety: Status: Acute DS: Medications Discharge Medications Home Medications: Home Medications Medication Instructions Recorded Confirmed mometasone-formoterol HFA 200 2 puff INHALATION BID 07/17/20 11/15/20 mcg-5 mcg/actuation aerosol inhaler atenolol 25 mg tablet 25 mg PO DAILY 08/03/20 11/15/20 cholecalciferol (vitamin D3) 25 25 mcg PO DAILY 08/03/20 11/15/20 mcg (1,000 unit) tablet sumatriptan succinate 25 mg tablet 25 mg PO DAILY PRN 08/03/20 11/15/20 albuterol sulfate 2 puff PO Q4H PRN 11/15/20 11/15/20 ipratropium-albuterol 1 vial INHALATION Q6H PRN 11/15/20 11/15/20 Previous Rx's Medication Instructions Recorded meclizine 25 mg tablet 25 mg PO DAILY PRN #30 tab 10/30/20 prednisone 50 mg PO DAILY #5 tab 11/17/20 DS: Summary Hospital Course Hospital Course: Patient presented with COPD exacerbation and acute on chronic respiratory failure with hypoxia. She was given higher supplemental oxygen at 4 L for several days and was treated with systemic steroids and scheduled bronchodilators. Over the course of her hospitalization patient's hypoxia resolved and other symptoms improved significantly. She will be discharged home with 5 more days of prednisone and is to continue her updrafts and inhalers as she does previously. Additionally, patient's symptoms have also been exacerbated by her severe anxiety which she has been resistant to start any pharmacological therapy. She was encouraged to follow up with Psychiatry/therapy as an outpatient and should she change her mind. Time Spent with Patient Time attestation: Total time spent providing and/or coordinating discharge services: Discharge coordination time: Greater than 30 minutes Physical Exam Vital Signs: Vital Signs: Last Vital Signs Temp 97.6 F 11/17/20 07:16 Pulse 82 11/17/20 07:50 Resp 17 11/17/20 07:16 BP 125/69 11/17/20 07:50 Pulse Ox 95 11/17/20 07:16 Body Mass Index 24.8 Const: Other: General - no acute distress, appears comfortable Cardiovascular - regular rate and rhythm, S1-S2 Lungs - normal respiratory effort, clear to auscultation bilaterally, no wheezing, improving air entry Abdomen - soft, nontender, no rebound or guarding Extremities - no edema bilaterally Neuro - awake and alert, no focal deficits DS: Data Data Completed and Pending Labs on day of discharge: Laboratory Tests 11/15/20 11/15/20 11/15/20 03:54 03:54 03:54 WBC RBC Hgb Hct MCV MCH MCHC RDW Plt Count MPV Immature Gran % (Auto) Neut % (Auto) Lymph % (Auto) Dickinson % (Auto) Eos % (Auto) Baso % (Auto) Lymph # (Auto) Dickinson # (Auto) Eos # (Auto) Baso # (Auto) Abs Immat Gran (auto) Absolute Neuts (auto) Absolute Nucleated RBC Nucleated RBC % (auto) Sodium Potassium Chloride Carbon Dioxide Anion Gap BUN Creatinine Estim Creat Clear Calc Estimated GFR Random Glucose Lactic Acid 0.8 Calcium Total Bilirubin Direct Bilirubin AST ALT Alkaline Phosphatase Troponin I High Sens < 3.5 B-Natriuretic Peptide 10 Total Protein Albumin Lipase 19 Urine Color Urine Appearance Urine pH Ur Specific Barnett Urine Protein Urine Glucose (UA) Urine Ketones Urine Blood Urine Nitrite Ur Leukocyte Esterase COVID-19 (AL) COVID-19 Clin Com 11/15/20 11/15/20 11/15/20 03:55 03:55 03:56 WBC 8.0 RBC 4.53 Hgb 14.2 Hct 43.5 MCV 96.0 MCH 31.3 MCHC 32.6 RDW 11.7 Plt Count 329 MPV 8.9 L Immature Gran % (Auto) 0.1 Neut % (Auto) 34.4 L Lymph % (Auto) 47.8 H Dickinson % (Auto) 10.4 Eos % (Auto) 6.7 H Baso % (Auto) 0.6 Lymph # (Auto) 3.8 Dickinson # (Auto) 0.8 Eos # (Auto) 0.5 H Baso # (Auto) 0.1 Abs Immat Gran (auto) 0.01 Absolute Neuts (auto) 2.8 Absolute Nucleated RBC 0.000 Nucleated RBC % (auto) 0.0 Sodium 142 Potassium 4.3 Chloride 106 Carbon Dioxide 28 Anion Gap 12 BUN 16 Creatinine 0.74 Estim Creat Clear Calc 79.1 Estimated GFR > 60 Random Glucose 88 Lactic Acid Calcium 8.8 Total Bilirubin 0.4 Direct Bilirubin < 0.2 AST 32 H ALT 34 H Alkaline Phosphatase 88 Troponin I High Sens B-Natriuretic Peptide Total Protein 6.3 L Albumin 4.1 Lipase Urine Color Urine Appearance Urine pH Ur Specific Barnett Urine Protein Urine Glucose (UA) Urine Ketones Urine Blood Urine Nitrite Ur Leukocyte Esterase COVID-19 (AL) Negative COVID-19 Clin Com See Note 11/15/20 05:04 WBC RBC Hgb Hct MCV MCH MCHC RDW Plt Count MPV Immature Gran % (Auto) Neut % (Auto) Lymph % (Auto) Dickinson % (Auto) Eos % (Auto) Baso % (Auto) Lymph # (Auto) Dickinson # (Auto) Eos # (Auto) Baso # (Auto) Abs Immat Gran (auto) Absolute Neuts (auto) Absolute Nucleated RBC Nucleated RBC % (auto) Sodium Potassium Chloride Carbon Dioxide Anion Gap BUN Creatinine Estim Creat Clear Calc Estimated GFR Random Glucose Lactic Acid Calcium Total Bilirubin Direct Bilirubin AST ALT Alkaline Phosphatase Troponin I High Sens B-Natriuretic Peptide Total Protein Albumin Lipase Urine Color YELLOW Urine Appearance CLEAR Urine pH 6.5 Ur Specific Barnett 1.015 Urine Protein NEG Urine Glucose (UA) NEG Urine Ketones NEG Urine Blood NEG Urine Nitrite NEG Ur Leukocyte Esterase NEG COVID-19 (AL) COVID-19 Clin Com Preliminary micro results at discharge 11/15/20 03:55 Blood Culture - Preliminary Blood - Venous No growth after 48 hours. 11/15/20 03:55 Blood Culture - Preliminary Blood - Venous No growth after 48 hours. Discharge Plan Discharge Patient Disposition: Home, Self-Care Referrals: Michael Rosen MD [Primary Care Provider] - Discharge Medications: New prednisone 50 mg tablet 50 mg PO DAILY Qty: 5 RF: 0 Continued meclizine 25 mg tablet 25 mg PO DAILY PRN (Reason: dizziness) Qty: 30 RF: 1 ipratropium-albuterol 0.5 mg-3 mg(2.5 mg base)/3 mL solution for nebulization 1 vial inhalation Q6H PRN (Reason: Shortness Of Breath Or Wheezing) RF: 0 albuterol sulfate 90 mcg/actuation HFA aerosol inhaler 2 puff PO Q4H PRN (Reason: shortness of breath or wheezing) RF: 0 mometasone-formoterol 200-5 mcg/actuation HFA aerosol inhaler 2 puff inhalation BID RF: 0 cholecalciferol (vitamin D3) 25 mcg (1,000 unit) tablet 25 mcg PO DAILY RF: 0 sumatriptan succinate 25 mg tablet 25 mg PO DAILY PRN (Reason: Migraine Headache) RF: 0 atenolol 25 mg tablet 25 mg PO DAILY RF: 0 Discharge Orders: Discharge Order (Routine); Ordered 11/17/20 Ordered By: Ramesh Cain Diet: advance to usual diet Activity on Discharge: As tolerated Stand Alone Forms: Patient Portal Discharge page Visit Report Forms: Patient Portal Discharge page Care Plan Goals: To stay healthy and out of the hospital. Health Concerns: COPD Plan of Treatment: Take prednisone 50mg daily for 5 days. Continue your inhalers as you normally do. Use your nebulizer machine every 4 to 6 hours daily for the next few days. You can then resume it as you normally do. If you have worsening symptoms, fevers, chills or any other concern, please return to the ED or call your PCP.
--- NOTE | 2020-11-17 09:33 | MHC.CM.PN ---
CM met with pt to discuss DC planning. Pt reports she is going home today but was told she would be given a portable O2 tank to go home with. She reports her brother will be picking her up. Pt already has O2 at home and reports she has been on it for about a month. Pt will DC home today with resumption of home O2 provided by [facility]. pts brother will transport.
[2020-11-17 11:43] VITALS: PULSE 82; O2SAT 96
== END 2020-11-17 12:07 | disposition home or self-care (01) | DRG 192 ==
LOC: HO.ED 05:04 → HO.EDOVER 07:59 → HO.S3 14:28
PROVIDERS: Admitting Provider Internal Medicine; Emergency Provider Emergency Medicine; PCP Internal Medicine; Visit Provider Family Medicine
DX: J44.1 Chronic obstructive pulmonary disease with (acute) exacerbation (principal); I10 Essential (primary) hypertension; G43.909 Migraine, unspecified, not intractable, without status migrainosus; Z99.81 Dependence on supplemental oxygen; Z77.22 Contact with and (suspected) exposure to environmental tobacco smoke (acute) (chronic); Z20.822 Contact with and (suspected) exposure to COVID-19; Z88.0 Allergy status to penicillin; Z88.6 Allergy status to analgesic agent; Z79.52 Long term (current) use of systemic steroids; Z79.899 Other long term (current) drug therapy
CPT/HCPCS: 36415; 71045; 80048; 80076; 81003; 83605; 83690; 83880; 84484; 85025; 87040; 87635; 93005; 94640; 94644; 96365; 96366; 96375; 99285; J1650; J2920; J3475

== ENCOUNTER 2020-11-19 01:12 | Emergency (ER) | payer OTHER, SELFPAY ==
--- NOTE | 2020-11-19 | XR_ITS ---
EXAMINATION: XR CHEST CLINICAL INFORMATION: Dyspnea COMPARISON: 11/15/2020 TECHNIQUE: Frontal view of the chest was obtained. FINDINGS: The lungs are hyperinflated and appear clear, with no focal consolidation. No evidence of pneumothorax, pleural effusion, or pulmonary edema. The cardiomediastinal contour is unremarkable. No acute osseous findings are seen. XR/XR chest 1V IMPRESSION: Hyperinflated lungs without additional acute findings.
[2020-11-19 01:30] VITALS: BP 145/92; BP 160/100; PULSE 100; PULSE 78; RESP 12; TEMP 36.8; O2SAT 92; O2SAT 96; BMI 23.3
--- NOTE | 2020-11-19 01:46 | ECG_ITS ---
Test Reason : DYSPNEA Blood Pressure : / mmHG Vent. Rate : 083 BPM Atrial Rate : 083 BPM P-R Int : 128 ms QRS Dur : 102 ms QT Int : 388 ms P-R-T Axes : 057 -51 061 degrees QTc Int : 455 ms Normal sinus rhythm Left anterior fascicular block Abnormal ECG When compared with ECG of 15-NOV-2020 03:37, No significant change was found Referred By: Marce Chacon Electronically Signed By:Josh Cline
[2020-11-19 02:08] LABS: Base Excess VBG 8.8 mmol/L; HCO3 VBG 36 mmol/L; PCO2 VBG 61 mmHg; PO2 VBG 38 mmHg; pH VBG 7.37 (7.32-7.43)
[2020-11-19 02:47] VITALS: BP 131/76; PULSE 81; RESP 13; O2SAT 94
--- NOTE | 2020-11-19 02:48 | PC.NURSE ---
PT IN NO DISTRESS, SPEAKING IN FULL SENTENCES. ROOM AIR SPO2 95%, BBS CLEAR AND EQUAL.
--- NOTE | 2020-11-19 02:49 | PC.NURSE ---
PT REPORTS THAT SHE DID NOT FILL RX FOR PREDNISONE IMMEDIATELY UPON DISCHARGE. TOOK FIRST DOSE LAST NIGHT.
--- NOTE | 2020-11-19 02:55 | ED.SOB ---
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 In addition, patient states she fell asleep without placing oxygen on despite recommendations at discharge for her to wear oxygen at night. Patient was discharged on 11/17 and was unable to forklift picker steroids until last night. Patient complain of chest pain ?for weeks?. Related Data Home Medications Medication Instructions Recorded Confirmed mometasone-formoterol HFA 200 2 puff INHALATION BID 07/17/20 11/15/20 mcg-5 mcg/actuation aerosol inhaler atenolol 25 mg tablet 25 mg PO DAILY 08/03/20 11/15/20 cholecalciferol (vitamin D3) 25 25 mcg PO DAILY 08/03/20 11/15/20 mcg (1,000 unit) tablet sumatriptan succinate 25 mg tablet 25 mg PO DAILY PRN 08/03/20 11/15/20 albuterol sulfate 2 puff PO Q4H PRN 11/15/20 11/15/20 ipratropium-albuterol 1 vial INHALATION Q6H PRN 11/15/20 11/15/20 Previous Rx's Medication Instructions Recorded meclizine 25 mg tablet 25 mg PO DAILY PRN #30 tab 10/30/20 prednisone 50 mg PO DAILY #5 tab 11/17/20 Allergies Allergy/AdvReac Type Severity Reaction Status Date / Time ibuprofen [IBUPROFEN] Allergy Severe ASTHMA , Verified 11/19/20 01:30 shortness of breath Penicillins Allergy Mild Nausea Verified 11/19/20 01:30 amoxicillin Allergy Unknown shortness Verified 11/19/20 01:30 of breath aspirin [ASPIRIN] Allergy Unknown ASTHMA, Verified 11/19/20 01:30 shortness of breath latex [LATEX] Allergy Unknown UNKNOWN Verified 11/19/20 01:30 montelukast AdvReac Severe headaches Verified 11/19/20 01:30 Review of Systems Review of Systems: Pertinent positives and negatives as stated in HPI 10 point review of systems is otherwise negative. PMFSH Past Medical History Source: nursing notes reviewed Medical History Allergic rhinosinusitis COPD (chronic obstructive pulmonary disease) Hypoxemia requiring supplemental oxygen Social History Social History Household Members: Children Housing: House Alcohol intake: unknown Smoking Status: Never smoker Second Hand Smoke Exposure: Yes Advance Directives: No service: No Current occupational status: disabled Physical Exam Vital Signs: Vital Signs: Last Vital Signs Temp 98.3 F 11/19/20 01:30 Pulse 81 11/19/20 02:47 Resp 13 11/19/20 02:47 BP 131/76 11/19/20 02:47 Pulse Ox 94 11/19/20 02:47 Body Mass Index 23.3 VITAL SIGNS: Reviewed. GENERAL: Well developed, well nourished, anxious. HEAD: Normocephalic/atraumatic, EYES: PERRLA, EOMI EARS: Ext canals without abnormality NOSE: Nares patent bilateral OROPHARYNX: no oral lesions noted, posterior pharynx clear and non-erythematous without noted tonsillar enlargement/erythema/exudates NECK: Supple, no adenopathy LUNGS: Normal breath sounds. No adventitious sounds or accessory muscle use, no tachypnea. SpO2<96> CARDIOVASCULAR: Regular rate and rhythm without noted murmurs ABDOMEN: Soft, non-tender, non-distended with bowel sounds. MUSCULOSKELETAL: No tenderness, deformities, or effusions noted on gross inspection. EXTREMITIES: No cyanosis, clubbing or edema. SKIN: Inspection of the skin reveals no rashes NEUROLOGIC: Alert and oriented x 4. Course Course Course Narrative: This is a 55-year-old female with history and clinical presentation most likely a combination of lapse in steroid coverage combined with not wearing oxygen as recommended while sleeping. On review of EKG, VBG, chest x-ray there are no acute findings to suggest cardiac ischemia, pneumonia, pulmonary congestion, or significant CO2 retention. All results and findings were discussed with the patient at bedside and she was reassured that this was likely the above-mentioned combination of events and she was encouraged to follow up with her primary care provider Friday morning. MDM - SOB/Dyspnea Lab Data Labs: Lab Results 11/19/20 Range/Units 02:01 VBG pH 7.37 (7.32-7.43) VBG pCO2 61 mmHg VBG pO2 38 mmHg VBG HCO3 36 mmol/L VBG O2 Saturation 60.0 % VBG Base Excess 8.8 mmol/L ECG Data Attestation: I personally reviewed and interpreted this ECG as follows: Prior ECG tracings: available for review (11/15/2020 no acute changes on comparison) Interpretation: Normal sinus rhythm, HR -83, no evidence of acute ischemia, ME/QTC are within normal limits. Discharge Plan Discharge Clinical Impression: Anxiety Patient Disposition: Home, Self-Care Instructions: Anxiety (ED) Additional Instructions: Please resume all home medications as prescribed. Recommend utilizing Mylanta/Maalox for acid control while completing your course prednisone. Follow-up with your primary care provider by calling the office on Friday. Return to the emergency department if you have any acute worsening of your symptoms. Prescriptions: No Action meclizine 25 mg tablet 25 mg PO DAILY PRN (Reason: dizziness) Qty: 30 RF: 1 ipratropium-albuterol 0.5 mg-3 mg(2.5 mg base)/3 mL solution for nebulization 1 vial inhalation Q6H PRN (Reason: Shortness Of Breath Or Wheezing) RF: 0 albuterol sulfate 90 mcg/actuation HFA aerosol inhaler 2 puff PO Q4H PRN (Reason: shortness of breath or wheezing) RF: 0 prednisone 50 mg tablet 50 mg PO DAILY Qty: 5 RF: 0 mometasone-formoterol 200-5 mcg/actuation HFA aerosol inhaler 2 puff inhalation BID RF: 0 cholecalciferol (vitamin D3) 25 mcg (1,000 unit) tablet 25 mcg PO DAILY RF: 0 sumatriptan succinate 25 mg tablet 25 mg PO DAILY PRN (Reason: Migraine Headache) RF: 0 atenolol 25 mg tablet 25 mg PO DAILY RF: 0 Referrals: Ace Ham MD [Primary Care Provider] - 2 days (Re-evaluation after recent admission for COPD exacerbation.)
== END 2020-11-19 03:26 | disposition home or self-care (01) ==
PROVIDERS: Emergency Provider Student in an Organized Health Care Education/Training Program; PCP Internal Medicine
DX: R06.02 Shortness of breath (principal); F41.9 Anxiety disorder, unspecified; F43.0 Acute stress reaction; Z79.899 Other long term (current) drug therapy
CPT/HCPCS: 71045; 82803; 93005; 99283

== ENCOUNTER → 2020-11-29 09:37 | Outpatient (BNVA) | payer OTHER, SELFPAY | PROVIDERS: PCP Internal Medicine; Visit Provider Internal Medicine | DX: J44.1 Chronic obstructive pulmonary disease with (acute) exacerbation (principal); F41.9 Anxiety disorder, unspecified; R09.02 Hypoxemia; R00.0 Tachycardia, unspecified; Z99.81 Dependence on supplemental oxygen | CPT/HCPCS: 99212 ==

== ENCOUNTER 2020-12-22 02:22 | Observation (INO) | payer OTHER, SELFPAY ==
[2020-12-22] VITALS (15 sets, daily range): BP systolic 114–134; BP diastolic 64–95; PULSE 74–106; RESP 12–20; TEMP 36.3–37.2; O2SAT 93–100; BMI 21.6
--- NOTE | ~2020-12-22 | XR_ITS ---
EXAMINATION: XR CHEST CLINICAL INFORMATION: Shortness of breath COMPARISON: 11/19/2020 TECHNIQUE: Frontal view of the chest was obtained. FINDINGS: The lungs are clear with no focal consolidation. No evidence of pneumothorax, pulmonary edema, or pleural effusions. The cardiomediastinal silhouette is unremarkable. No acute osseous findings. XR/XR chest 1V IMPRESSION: No acute cardiopulmonary findings.
[2020-12-22] MEDS: Albuterol Sulfate (0.083%) 2.5 MG/3 ML VIAL.NEB INHALE ×2 (02:58→04:48)
[2020-12-22] MEDS: methylPREDNISolone Sod Succ/PF 125 MG/2 ML VIAL IVPUSH (03:07)
--- NOTE | 2020-12-22 03:16 | ED.GENADULT ---
HPI - General Adult General Chief complaint: Dyspnea Stated complaint: DIFFICULTY BREATHING Time Seen by Provider: 12/22/20 02:38 Source: patient Mode of arrival: EMS Limitations: no limitations History of Present Illness HPI narrative: 55-year-old female who presents emergency department for evaluation of shortness of breath. Patient states she was in her usual state of health yesterday and went to bed at around 10:00 p.m.. She states she woke up at 2:00 a.m. with shortness of breath, elevated pulse and elevated blood pressure. She used her ProAir inhaler and a DuoNeb nebulizer with no relief for symptoms. She states she felt more short of breath therefore she called an ambulance and was transported to the emergency department, she received no treatment EN route. The patient denied fever, chills, cough, chest pain. She denied nausea, vomiting or abdominal pain. The patient states that she has COPD and is oxygen dependent. She states that she wears her oxygen intermittently but has noted that she has had use it more frequently recently. She states that she sometimes wakes up short of breath the night and has been here to the emergency department with similar complaints in the past. Related Data Home Medications Medication Instructions Recorded Confirmed mometasone-formoterol HFA 200 2 puff INHALATION BID 07/17/20 11/15/20 mcg-5 mcg/actuation aerosol inhaler cholecalciferol (vitamin D3) 25 25 mcg PO DAILY 08/03/20 11/15/20 mcg (1,000 unit) tablet sumatriptan succinate 25 mg tablet 25 mg PO DAILY PRN 08/03/20 11/15/20 albuterol sulfate 2 puff PO Q4H PRN 11/15/20 11/15/20 ipratropium-albuterol 1 vial INHALATION Q6H PRN 11/15/20 11/15/20 Previous Rx's Medication Instructions Recorded meclizine 25 mg tablet 25 mg PO DAILY PRN #30 tab 10/30/20 prednisone 50 mg PO DAILY #5 tab 11/17/20 prednisone 20 mg tablet 20 mg PO DAILY 10 Days #10 tab 11/22/20 atenolol 25 mg tablet 25 mg PO DAILY #90 tab 12/20/20 Allergies Allergy/AdvReac Type Severity Reaction Status Date / Time ibuprofen [IBUPROFEN] Allergy Severe ASTHMA , Verified 11/19/20 01:30 shortness of breath Penicillins Allergy Mild Nausea Verified 11/19/20 01:30 amoxicillin Allergy Unknown shortness Verified 11/19/20 01:30 of breath aspirin [ASPIRIN] Allergy Unknown ASTHMA, Verified 11/19/20 01:30 shortness of breath latex [LATEX] Allergy Unknown UNKNOWN Verified 11/19/20 01:30 montelukast AdvReac Severe headaches Verified 11/19/20 01:30 Review of Systems Review of Systems: Yes all other systems are reviewed and are negative Neurologic: Denies Abnormal speech present [facility] Past Medical History [facility] Narrative: Patient states she has never smoke cigarettes, she occasionally drinks alcohol, she denies drug use. Medical History Allergic rhinosinusitis COPD (chronic obstructive pulmonary disease) Hypoxemia requiring supplemental oxygen Tachycardia Social History Social History Household Members: Children Housing: House Alcohol intake: never Smoking Status: Never smoker Second Hand Smoke Exposure: Yes Use of substances other than those prescribed or required for medical reasons: No Advance Directives: No service: No Current occupational status: disabled Physical Exam Vital Signs: Vital Signs: Last Vital Signs Temp 98.9 F 12/22/20 02:36 Pulse 85 12/22/20 04:48 Resp 18 12/22/20 04:42 BP 126/72 12/22/20 04:42 Pulse Ox 95 12/22/20 04:42 Body Mass Index 21.6 Const: General: cooperative Orientation/consciousness: oriented to person and oriented to place Limitations: no limitations HENMT: Head: Yes normal to inspection, Yes normocephalic and Yes atraumatic Ears: external ears normal General nose exam: Normal external nose present Face and sinus: Yes normal facial exam Mouth: Normal oral and palatal mucosa present Throat: Yes posterior oropharynx normal Eyes: Periorbital: periorbital findings normal Eyelids: Yes eyelids normal Conjunctivae: conjunctivae normal Sclerae: sclerae normal Corneas: corneas normal Pupils: Equal, round and reactive pupils present Direct Ophthalmoscopy: normal light reflex Neck: Neck: Yes full ROM, Yes no lymphadenopathy, Yes no meningeal signs, Yes trachea midline and Yes supple Chest: Chest palpation & inspection: normal inspection of the chest and normal palpation of entire chest wall Resp: Effort & Inspection: normal respiratory effort and able to speak in complete sentences Auscultation: rhonchi throughout and wheezes throughout Cardio: Rate: regular rate Rhythm: regular rhythm Heart sounds: S1 normal heart sound present, S2 normal heart sound present and no murmurs GI: Inspection: Yes normal to inspection Palpation (GI): Soft to palpation, nontender, no guarding, not rigid and No hepatosplenomegaly present : General: Yes no CVA tenderness Back/Spine/Pelvis: Back: no CVA tenderness Cervical Spine: normal cervical lordosis Thoracic/Lumbar Spine: thoracic and lumbar spine normal to inspection Skin: Lesions: no lesions Rashes: no rashes Wounds: no wounds Neuro: General: oriented to person, oriented to place and no meningeal signs Cranial nerves: Yes CN's II-XII intact bilaterally and Yes Equal, round and reactive pupils present Cognition (Neuro): normal cognition Speech: No Abnormal speech present Motor exam (neuro): 5/5 motor strength present throughout Extrem: General: Yes normal to inspection and Yes full ROM Psych: Appearance: well kempt Mental Status: mental status grossly normal Speech and movement: Normal speech and movement present Affect: normal affect Attitude: cooperative Thought process: Normal thought process present Thought content: Normal thought content present Course Course Course Narrative: 55-year-old female with a history of COPD who presents emergency department for evaluation of shortness of breath which began at around 2:00 a.m. and was not improved at home when she used her ProAir inhaler and a DuoNeb nebulizer. On presentation, patient's vital signs were stable with a normal temperature and O2 saturation 95% on room air suggesting that she does not have hypoxia. The patient's lung exam revealed diffuse rhonchi and wheezing. I did order a laboratory evaluation and chest x-ray of this patient. The patient refused COVID-19 testing at this time. She was ordered to get an albuterol nebulizer and Solu-Medrol 125 mg IV. 0425: The patient states that she did not get any relief with the above treatment. Lung exam did reveal continued wheezing. She was ordered to get a 2nd albuterol nebulizer treatment. At at this time, I believe the patient will need to be admitted for further management of her COPD exacerbation. I did order blood work on the patient and a COVID-19 test. 0550: The patient got minimal improvement with her 2nd albuterol nebulizer, she did walk to the bathroom off oxygen and her O2 saturation dropped down to 86% and she became very short of breath. The patient does wear oxygen at home but only intermittently. The patient's laboratory evaluation revealed [place] [id number], chest x-ray revealed no evidence of pneumonia, COVID-19 test was negative. The patient will need to be admitted for COPD exacerbation. I will discuss the patient's presentation with the covering hospitalist. 0603: I did discuss the patient's presentation with the covering hospitalist, he requested EKG and a troponin added on to the initial blood draw. The patient will be admitted for further management of her COPD. Medical Decision Making Lab Data Result diagrams: 12/22/20 04:38 12/22/20 04:38 Labs: Lab Results 12/22/20 12/22/20 12/22/20 Range/Units 04:38 04:38 04:38 WBC 11.6 H (4.8-10.8) X10*3/uL RBC 4.62 (4.20-5.50) X10*6/uL Hgb 14.6 (12.0-16.0) g/dl Hct 43.7 (37-47) % MCV 94.6 (80-98) fL MCH 31.6 (27.0-33.0) pg MCHC 33.4 (31.0-35.0) g/dl RDW 11.7 (11.0-16.0) % Plt Count 330 (160-400) X10*3/uL MPV 8.8 L (9.4-12.3) fL Immature Gran % (Auto) 0.5 H (0.0-0.4) % Neut % (Auto) 86.1 H (45-73) % Lymph % (Auto) 10.1 L (20-40) % Amelia % (Auto) 2.1 (2-11) % Eos % (Auto) 0.9 (0-4) % Baso % (Auto) 0.3 (0-2) % Lymph # (Auto) 1.2 (1.2-4.9) X10*3/uL Amelia # (Auto) 0.2 (0.1-1.2) X10*3/uL Eos # (Auto) 0.1 (0.0-0.4) X10*3/uL Baso # (Auto) 0.0 (0.0-0.2) X10*3/uL Abs Immat Gran (auto) 0.06 H (0.00-0.03) X10*3/uL Absolute Neuts (auto) 10.0 H (2.0-8.3) X10*3/uL Absolute Nucleated RBC 0.000 (0.0-0.012) X10*3/uL Nucleated RBC % (auto) 0.0 (0.0-0.2) /100WBC Sodium 142 (135-145) mmol/L Potassium 3.4 (3.3-5.1) mmol/L Chloride 105 (96-108) mmol/L Carbon Dioxide 28 (22-29) mmol/L Anion Gap 12 (12-20) BUN 17 H (9-16) mg/dL Creatinine 0.77 (0.5-1.4) mg/dL Estim Creat Clear Calc 73.4 Estimated GFR > 60 Random Glucose 133 H D (60-115) mg/dL Lactic Acid 1.1 (0.5-2.0) mmol/L Calcium 9.2 (8.4-10.2) mg/dL Total Bilirubin 0.6 (0.0-1.0) mg/dL AST 29 (5-31) U/L ALT 37 H (0-31) U/L Alkaline Phosphatase 94 (39-117) U/L Total Protein 6.6 (6.5-8.0) g/dL Albumin 4.2 (3.5-5.0) g/dL Urine Color Urine Appearance Urine pH (5.0-8.0) Ur Specific [place] (1.005-1.025) Urine Protein (NEG-TRACE) MG/DL Urine Glucose (UA) (NEG) MG/DL Urine Ketones (NEG) MG/DL Urine Blood (NEG) Urine Nitrite (NEG) Ur Leukocyte Esterase (NEG) Urine RBC (0) /HPF Urine WBC (0-4) /HPF Ur Squamous Epith Cells /LPF Urine Bacteria /LPF COVID-19 (AL) (Negative) COVID-19 Clin Com 12/22/20 12/22/20 Range/Units 04:38 04:38 WBC (4.8-10.8) X10*3/uL RBC (4.20-5.50) X10*6/uL Hgb (12.0-16.0) g/dl Hct (37-47) % MCV (80-98) fL MCH (27.0-33.0) pg MCHC (31.0-35.0) g/dl RDW (11.0-16.0) % Plt Count (160-400) X10*3/uL MPV (9.4-12.3) fL Immature Gran % (Auto) (0.0-0.4) % Neut % (Auto) (45-73) % Lymph % (Auto) (20-40) % Amelia % (Auto) (2-11) % Eos % (Auto) (0-4) % Baso % (Auto) (0-2) % Lymph # (Auto) (1.2-4.9) X10*3/uL Amelia # (Auto) (0.1-1.2) X10*3/uL Eos # (Auto) (0.0-0.4) X10*3/uL Baso # (Auto) (0.0-0.2) X10*3/uL Abs Immat Gran (auto) (0.00-0.03) X10*3/uL Absolute Neuts (auto) (2.0-8.3) X10*3/uL Absolute Nucleated RBC (0.0-0.012) X10*3/uL Nucleated RBC % (auto) (0.0-0.2) /100WBC Sodium (135-145) mmol/L Potassium (3.3-5.1) mmol/L Chloride (96-108) mmol/L Carbon Dioxide (22-29) mmol/L Anion Gap (12-20) BUN (9-16) mg/dL Creatinine (0.5-1.4) mg/dL Estim Creat Clear Calc Estimated GFR Random Glucose (60-115) mg/dL Lactic Acid (0.5-2.0) mmol/L Calcium (8.4-10.2) mg/dL Total Bilirubin (0.0-1.0) mg/dL AST (5-31) U/L ALT (0-31) U/L Alkaline Phosphatase (39-117) U/L Total Protein (6.5-8.0) g/dL Albumin (3.5-5.0) g/dL Urine Color YELLOW Urine Appearance CLEAR Urine pH 6.0 (5.0-8.0) Ur Specific [place] 1.010 (1.005-1.025) Urine Protein NEG (NEG-TRACE) MG/DL Urine Glucose (UA) NEG (NEG) MG/DL Urine Ketones NEG (NEG) MG/DL Urine Blood NEG (NEG) Urine Nitrite NEG (NEG) Ur Leukocyte Esterase NEG (NEG) Urine RBC 1-4 (0) /HPF Urine WBC 1-4 (0-4) /HPF Ur Squamous Epith Cells 1+ /LPF Urine Bacteria 1+ /LPF COVID-19 (AL) Negative (Negative) COVID-19 Clin Com See Note Discharge Plan Discharge Prescriptions: No Action meclizine 25 mg tablet 25 mg PO DAILY PRN (Reason: dizziness) Qty: 30 RF: 1 prednisone 20 mg tablet 20 mg PO DAILY 10 Days Qty: 10 RF: 1 atenolol 25 mg tablet 25 mg PO DAILY Qty: 90 RF: 1 ipratropium-albuterol 0.5 mg-3 mg(2.5 mg base)/3 mL solution for nebulization 1 vial inhalation Q6H PRN (Reason: Shortness Of Breath Or Wheezing) RF: 0 albuterol sulfate 90 mcg/actuation HFA aerosol inhaler 2 puff PO Q4H PRN (Reason: shortness of breath or wheezing) RF: 0 prednisone 50 mg tablet 50 mg PO DAILY Qty: 5 RF: 0 mometasone-formoterol 200-5 mcg/actuation HFA aerosol inhaler 2 puff inhalation BID RF: 0 cholecalciferol (vitamin D3) 25 mcg (1,000 unit) tablet 25 mcg PO DAILY RF: 0 sumatriptan succinate 25 mg tablet 25 mg PO DAILY PRN (Reason: Migraine Headache) RF: 0
--- NOTE | 2020-12-22 04:29 | PC.NURSE ---
UP TO BR. DOES NOT FEEL BETTER. LABS DRAWN. O2 SAT 89% AFTER AMB. O2 ON AT 2L. sat up to 95%
[2020-12-22 04:50] LABS: Basophils Percent Auto 0.3 % (0-2); Eosinophils Absolute Auto 0.1 X10*3/uL (0.0-0.4); Eosinophils Percent Auto 0.9 % (0-4); Hematocrit 43.7 % (37-47); Hemoglobin 14.6 g/dl (12.0-16.0); Imm Gran Abs Auto 0.06 X10*3/uL (0.00-0.03); Imm Gran Pct Auto 0.5 % (0.0-0.4); Lymphocytes Absolute Auto 1.2 X10*3/uL (1.2-4.9); Lymphocytes Percent Auto 10.1 % (20-40); MANUAL DIFF FLAG NO; Mean Corpuscular HGB Conc 33.4 g/dl (31.0-35.0); Mean Corpuscular Hemoglobin 31.6 pg (27.0-33.0); Mean Corpuscular Volume 94.6 fL (80-98); Mean Platelet Volume 8.8 fL (9.4-12.3); Monocytes Absolute Auto 0.2 X10*3/uL (0.1-1.2); Monocytes Percent Auto 2.1 % (2-11); Neutrophils Percent Auto 86.1 % (45-73); Platelet Count 330 X10*3/uL (160-400); Red Blood Count 4.62 X10*6/uL (4.20-5.50); Red Cell Distribution Width 11.7 % (11.0-16.0); White Blood Count 11.6 X10*3/uL (4.8-10.8)
[2020-12-22 04:51] LABS: Glucose Urine UA NEG (NEG); Leukocyte Esterase Urine NEG (NEG); Nitrite Urine NEG (NEG); Urine Blood NEG (NEG); Urine Ketones NEG (NEG); Urine Protein NEG (NEG-TRACE)
[2020-12-22 04:53] LABS: Appearance Urine CLEAR; Color Urine YELLOW
[2020-12-22 04:58] LABS: Bacteria Urine 1+ /LPF; Squamous Epithelial Cell Urine 1+ /LPF
[2020-12-22 05:04] LABS: COVID-19 Test Negative (Negative)
[2020-12-22 05:27] LABS: Lactic Acid 1.1 mmol/L (0.5-2.0)
[2020-12-22 05:32] LABS: Alanine Aminotransferase 37 U/L (0-31); Albumin Level 4.2 g/dL (3.5-5.0); Alkaline Phosphatase 94 U/L (39-117); Anion Gap 12 (12-20); Aspartate Amino Transferase 29 U/L (5-31); Bilirubin Total 0.6 mg/dL (0.0-1.0); Blood Urea Nitrogen 17 mg/dL (9-16); Calcium 9.2 mg/dL (8.4-10.2); Carbon Dioxide 28 mmol/L (22-29); Chloride 105 mmol/L (96-108); Creatinine Clr Calc Pharmacy 73.4; Estimated Glomerular Filt Rate > 60; Glucose Random 133 mg/dL (60-115); Potassium 3.4 mmol/L (3.3-5.1); Sodium 142 mmol/L (135-145); Total Protein 6.6 g/dL (6.5-8.0)
--- NOTE | 2020-12-22 06:02 | ECG_ITS ---
Test Reason : SOB Blood Pressure : / mmHG Vent. Rate : 091 BPM Atrial Rate : 091 BPM P-R Int : 146 ms QRS Dur : 104 ms QT Int : 388 ms P-R-T Axes : 077 -71 053 degrees QTc Int : 477 ms Normal sinus rhythm Incomplete right bundle branch block Left anterior fascicular block Abnormal ECG When compared with ECG of 19-NOV-2020 01:53, Incomplete right bundle branch block is now Present Referred By: Pardeep Crocker Electronically Signed By:JUNG CANTOR
[2020-12-22 06:43] LABS: Troponin-I High Sensitivity < 3.5 ng/L (<3.5-17.0)
--- NOTE | 2020-12-22 07:57 | PM.IMHP ---
History of Present Illness Date of Service: 12/22/20 <HERNANDEZ Nash - Last Filed: 12/22/20 08:51> Chief Complaint: shortness of breath <HERNANDEZ Nash - Last Filed: 12/22/20 08:51> This is a 55 year old female with a history of COPD who presents to the ED with shortness of breath. Yesterday she did a lot of cleaning and it was very niki. She woke up around 1am feeling short of breath. She used her nebulizer machine for a breathing treatment, but did not get any relief. She denied any fever, chills or associated cough. She denies any recent sick contacts. She came to the ED for evaluation. Her labwork was significant for white count of 11.6. Chest xray showed no evidence of pneumonia. She received a breathing treatment and solu-medrol in the ED. She became short of breath with walking to the bathroom and her oxygen dropped to 86% on room air however she was not using oxygen at that time. She does have oxygen that she uses at night and it seems from previous notes that she is supposed to use it with activity as well. <HERNANDEZ Nash - Last Filed: 12/22/20 08:51> Review of Systems Review of Systems: Yes all other systems are reviewed and are negative <HERNANDEZ Nash Last Filed: 12/22/20 08:51> Constitutional: Constitutional: Denies chills and Denies fever(s) <HERNANDEZ Nash Last Filed: 12/22/20 08:51> Cardiovascular: Cardiovascular: Denies chest pain and Reports dyspnea <HERNANDEZ Nash Last Filed: 12/22/20 08:51> Respiratory: Respiratory: Denies cough and Reports dyspnea <HERNANDEZ Nash Last Filed: 12/22/20 08:51> Gastrointestinal: Gastrointestinal: Denies abdominal pain <HERNANDEZ Nash - Last Filed: 12/22/20 08:51> [facility] Medical History: Medical History Allergic rhinosinusitis COPD (chronic obstructive pulmonary disease) Hypoxemia requiring supplemental oxygen Tachycardia <HERNANDEZ Nash - Last Filed: 12/22/20 08:51> Functional capacity: independent ambulation <HERNANDEZ Nash - Last Filed: 12/22/20 08:51> Family History: Family History Other Asthma <HERNANDEZ Nash - Last Filed: 12/22/20 08:51> Family history: reviewed and not pertinent <HERNANDEZ Nash - Last Filed: 12/22/20 08:51> Surgical History: Surgical History H/O breast biopsy <HERNANDEZ Nash Last Filed: 12/22/20 08:51> Social History: Social History Household Members: Children Housing: House Alcohol intake: current Alcohol intake frequency: holidays/special occasions only Smoking Status: Never smoker Second Hand Smoke Exposure: Yes service: No Current occupational status: disabled <HERNANDEZ Nash Last Filed: 12/22/20 08:51> Meds Allergies/Adverse reactions: Allergies Allergy/AdvReac Type Severity Reaction Status Date / Time ibuprofen [IBUPROFEN] Allergy Severe ASTHMA , Verified 12/27/20 10:03 shortness of breath Penicillins Allergy Mild Nausea Verified 12/27/20 10:03 amoxicillin Allergy Unknown shortness Verified 12/27/20 10:03 of breath aspirin [ASPIRIN] Allergy Unknown ASTHMA, Verified 12/27/20 10:03 shortness of breath latex [LATEX] Allergy Unknown UNKNOWN Verified 12/27/20 10:03 montelukast AdvReac Severe headaches Verified 11/19/20 01:30 <HERNANDEZ Nash Last Filed: 12/22/20 08:51> Active Medications: Current Medications Generic Name Dose Route Start Last Admin Trade Name Freq PRN Reason Stop Dose Admin Acetaminophen 650 mg 12/22/20 07:50 Acetaminophen 325 Mg Tablet PO Q6H PRN Pain, Mild (Pain Scale 1-3) Albuterol Sulfate 2.5 mg 12/22/20 07:50 Albuterol Sulfate (0.083%) 2.5 Mg/3 Ml Vial.Neb INHALE RQ4H PRN Shortness of Breath Albuterol/Ipratropium 3 ml 12/22/20 08:00 Albuterol/Iprat 2.5/0.5mg 3 Ml Ampul.Neb INHALE RQ4H WHILE AWAKE MEGAN Docusate Sodium 100 mg 12/22/20 07:50 Docusate Sodium 100 Mg Capsule PO DAILY PRN Constipation Enoxaparin Sodium 40 mg 12/22/20 10:00 Enoxaparin Sodium 40 Mg/0.4 Ml Syringe SUBCUT Q24H MEGAN Methylprednisolone Sodium Succinate 40 mg 12/22/20 09:00 Methylprednisolone Sod Succ/Pf 40 Mg/Ml Vial IVPUSH BID MEGAN Ondansetron HCl 4 mg 12/22/20 07:50 Ondansetron Hcl 4 Mg/2 Ml Vial IVPUSH Q8H PRN Nausea and Vomiting Pharmacy Consult 1 each 12/22/20 06:13 Consult Rx Perform Med Rec MISCELLANE ONCE PRN Consult order Sodium Chloride 3 ml 12/22/20 08:00 0.9 % Sodium Chloride Flush 3 Ml Syringe IVFLUSH QSHIFT [facility] <HERNANDEZ Nash - Last Filed: 12/22/20 08:51> Home medications: Home Medications Medication Instructions Recorded Confirmed Last Taken Type cholecalciferol (vitamin D3) 25 25 mcg PO DAILY 08/03/20 12/23/20 12/23/20 History mcg (1,000 unit) tablet <HERNANDEZ Nash - Last Filed: 12/22/20 08:51> Physical Exam Vital Signs and Narrative: Vital Signs: Last Vital Signs Temp 98.9 F 12/22/20 02:36 Pulse 85 12/22/20 04:48 Resp 18 12/22/20 04:42 BP 126/72 12/22/20 04:42 Pulse Ox 95 12/22/20 04:42 Body Mass Index 21.6 <HERNANDEZ Nash - Last Filed: 12/22/20 08:51> Const: General: cooperative, comfortable, no acute distress, well developed, alert, awake, Physically active and anxious <HERNANDEZ Nash - Last Filed: 12/22/20 08:51> Nutritional Appearance: well nourished <HERNANDEZ Nash - Last Filed: 12/22/20 08:51> Orientation/consciousness: patient oriented x3 <HERNANDEZ Nash - Last Filed: 12/22/20 08:51> HENMT: Head: Yes normocephalic and Yes atraumatic <HERNANDEZ Nash - Last Filed: 12/22/20 08:51> Eyes: Sclerae: sclerae normal <HERNANDEZ Nash - Last Filed: 12/22/20 08:51> Chest: Chest palpation & inspection: normal inspection of the chest <HERNANDEZ Nash - Last Filed: 12/22/20 08:51> Resp: Effort & Inspection: no respiratory distress <HERNANDEZ Nash - Last Filed: 12/22/20 08:51> Auscultation: wheezes scattered wheezes and diminished lung sounds <HERNANDEZ Nash - Last Filed: 12/22/20 08:51> Cardio: Rate: regular rate <HERNANDEZ Nash - Last Filed: 12/22/20 08:51> Rhythm: regular rhythm <HERNANDEZ Nash - Last Filed: 12/22/20 08:51> GI: Palpation (GI): Soft to palpation and nontender <HERNANDEZ Nash - Last Filed: 12/22/20 08:51> Skin: General skin exam: no rashes or lesions noted <HERNANDEZ Nash - Last Filed: 12/22/20 08:51> Neuro: General: patient oriented x3 <HERNANDEZ Nash - Last Filed: 12/22/20 08:51> Cranial nerves: Yes CN's II-XII intact bilaterally and Yes Bilaterally intact EOM present <HERNANDEZ Nash - Last Filed: 12/22/20 08:51> Extrem: General: Yes normal to inspection <HERNANDEZ Nash - Last Filed: 12/22/20 08:51> Results Labs CBC and Chem 7: : 12/22/20 04:38 12/22/20 04:38 <HERNANDEZ Nash - Last Filed: 12/22/20 08:51> Labs: Laboratory Results - last 24 hr 12/22/20 12/22/20 12/22/20 04:38 04:38 04:38 MCV 94.6 MCH 31.6 MCHC 33.4 RDW 11.7 Plt Count 330 MPV 8.8 L Immature Gran % (Auto) 0.5 H Neut % (Auto) 86.1 H Lymph % (Auto) 10.1 L [place] % (Auto) 2.1 Eos % (Auto) 0.9 Baso % (Auto) 0.3 Lymph # (Auto) 1.2 [place] # (Auto) 0.2 Eos # (Auto) 0.1 Baso # (Auto) 0.0 Abs Immat Gran (auto) 0.06 H Absolute Neuts (auto) 10.0 H Absolute Nucleated RBC 0.000 Nucleated RBC % (auto) 0.0 Anion Gap 12 Estim Creat Clear Calc 73.4 Estimated GFR > 60 Random Glucose 133 H D Lactic Acid 1.1 Calcium 9.2 Total Bilirubin 0.6 AST 29 ALT 37 H Alkaline Phosphatase 94 Troponin I High Sens Total Protein 6.6 Albumin 4.2 Urine Color Urine Appearance Urine pH Ur Specific [place] Urine Protein Urine Glucose (UA) Urine Ketones Urine Blood Urine Nitrite Ur Leukocyte Esterase Urine RBC Urine WBC Ur Squamous Epith Cells Urine Bacteria COVID-19 (AL) COVID-19 Clin Com 12/22/20 12/22/20 12/22/20 04:38 04:38 04:38 MCV MCH MCHC RDW Plt Count MPV Immature Gran % (Auto) Neut % (Auto) Lymph % (Auto) [place] % (Auto) Eos % (Auto) Baso % (Auto) Lymph # (Auto) [place] # (Auto) Eos # (Auto) Baso # (Auto) Abs Immat Gran (auto) Absolute Neuts (auto) Absolute Nucleated RBC Nucleated RBC % (auto) Anion Gap Estim Creat Clear Calc Estimated GFR Random Glucose Lactic Acid Calcium Total Bilirubin AST ALT Alkaline Phosphatase Troponin I High Sens < 3.5 Total Protein Albumin Urine Color YELLOW Urine Appearance CLEAR Urine pH 6.0 Ur Specific [place] 1.010 Urine Protein NEG Urine Glucose (UA) NEG Urine Ketones NEG Urine Blood NEG Urine Nitrite NEG Ur Leukocyte Esterase NEG Urine RBC 1-4 Urine WBC 1-4 Ur Squamous Epith Cells 1+ Urine Bacteria 1+ COVID-19 (AL) Negative COVID-19 Clin Com See Note <HERNANDEZ Nash - Last Filed: 12/22/20 08:51> Imaging Radiologist's Impressions: Impressions Chest X-Ray 12/22/20 02:53 IMPRESSION: No acute cardiopulmonary findings. <HERNANDEZ Nash - Last Filed: 12/22/20 08:51> Assessment and Plan (1) Acute exacerbation of chronic obstructive pulmonary disease: Problem details: This patient with advanced COPD, was treated in the hospital for an acute exacerbation last week. At present seems to be back to her usual baseline, but remains very apprehensive and worried about getting another acute exacerbation. She is advised to continue her current medical regimen including Dulera 200-5 2 puffs b.i.d. DuoNeb updrafts Q 6 hours while awake. And p.r.n. Also albuterol HFA 2 puffs q.6 hours p.r.n. when outdoors I think she would do better on a small dose of prednisone on a daily basis for a while. So prednisone 5 mg daily is prescribed for the next month. Then may reduced to every other day Will revaluate on her next visit in 2 months. <HERNANDEZ Nash - Last Filed: 12/22/20 08:51> Status: Acute <HERNANDEZ Nash - Last Filed: 12/22/20 08:51> This is a 55-year-old female with history of COPD who presents to the emergency department with shortness of breath Acute COPD exacerbation No evidence of sepsis -IV Solu-Medrol -scheduled and p.r.n. breathing treatments -supplemental oxygen p.r.n. and at night Chronic respiratory failure r/t COPD Patient uses 2 L of oxygen at night and with activity h/o tachycardia Continue Atenolol dvt ppx - lovenox code status - full code This case was discussed with Dr. Sheppard <HERNANDEZ Nash - Last Filed: 12/22/20 08:51>
[2020-12-22] MEDS: Albuterol/Iprat 2.5/0.5MG 3 ML AMPUL.NEB INHALE ×4 (08:13→20:46)
[2020-12-22] MEDS: Enoxaparin Sodium 40 MG/0.4 ML SYRINGE SUBCUT (09:00)
[2020-12-22] MEDS: 0.9 % Sodium Chloride Flush 3 ML SYRINGE IVFLUSH ×3 (09:01→20:32)
[2020-12-22] MEDS: Cholecalciferol (Vitamin D3) 25 MCG TABLET PO (10:16)
[2020-12-22] MEDS: Acetaminophen 325 MG TABLET 650 MG PO (10:16)
[2020-12-22] MEDS: atenoloL 25 MG TABLET PO (10:16)
--- NOTE | 2020-12-22 15:19 | PM.EVENT ---
Event Note Date of Service: 12/22/20 Event Note: Patient seen examined case discussed with APC 55-year-old female patient presented with acute onset of shortness of breath patient use ProAir and DuoNeb nebulizer with no relief in symptoms therefore she called the ambulance and brought to [place] she denied any fever chills no cough or chest pain she denied sick contact check patient has history of COPD on home O2 2 L at bedtime and with activity in the emergency room patient oxygenation dropped with ambulation, patient being admitted for COPD exacerbation with chronic respiratory failure On examination patient awake alert Lungs clear to auscultation at present no respiratory distress Assessment and plan COPD exacerbation with chronic respiratory failure on home oxygen encourage patient to use oxygen with activity and at bedtime continue current treatment as per APC.
[2020-12-22] MEDS: ondansetron HCL 4 MG/2 ML VIAL IVPUSH (16:28)
[2020-12-23] VITALS: RESP 16
[2020-12-23 04:00] VITALS: BP 110/61; PULSE 76; RESP 16; TEMP 36.4; O2SAT 95
[2020-12-23 07:51] VITALS: BP 107/70; PULSE 72; RESP 18; TEMP 36.8; O2SAT 96
[2020-12-23 08:02] VITALS: PULSE 78
[2020-12-23] MEDS: Albuterol/Iprat 2.5/0.5MG 3 ML AMPUL.NEB INHALE ×2 (08:02→11:31)
[2020-12-23] MEDS: Cholecalciferol (Vitamin D3) 25 MCG TABLET PO (09:16)
[2020-12-23] MEDS: 0.9 % Sodium Chloride Flush 3 ML SYRINGE IVFLUSH (09:16)
[2020-12-23] MEDS: atenoloL 25 MG TABLET PO (09:16)
[2020-12-23] MEDS: Enoxaparin Sodium 40 MG/0.4 ML SYRINGE SUBCUT (09:17)
[2020-12-23] MEDS: Acetaminophen 325 MG TABLET 650 MG PO (09:21)
--- NOTE | 2020-12-23 11:01 | MHC.CM.PN ---
Lives with her son, independent with ADLs, has oxygen through [employer] at home she uses as needed, son to drive home. Anticipate no needs on dc.
--- NOTE | 2020-12-23 11:28 | PM.DS ---
DS: Providers Provider Date of Service: 12/24/20 <Dory Gamble NP - Last Filed: 12/24/20 14:18> 12/24/20 <Ramesh Cain MD - Last Filed: 12/24/20 17:10> Date of admission: 12/22/20 07:54 <Dory Gamble NP - Last Filed: 12/24/20 14:18> Date of discharge: 12/23/20 <Dory Gamble NP - Last Filed: 12/24/20 14:18> Primary care physician: Michael Rosen MD <Dory Gamble NP - Last Filed: 12/24/20 14:18> Admitting clinician: Lashawn Weeks <Dory Gamble NP - Last Filed: 12/24/20 14:18> Attending physician on admission: Rula Sheppard <Dory Gamble NP - Last Filed: 12/24/20 14:18> Attending physician on discharge: Ramesh Cain <Dory Gamble NP - Last Filed: 12/24/20 14:18> Discharging clinician: Dory Gamble <Dory Gamble NP - Last Filed: 12/24/20 14:18> DS: Diagnosis Discharge Diagnosis (1) Acute exacerbation of chronic obstructive pulmonary disease: Status: Acute <Dory Gamble NP - Last Filed: 12/24/20 14:18> DS: Medications Discharge Medications Home Medications: Home Medications Medication Instructions Recorded Confirmed cholecalciferol (vitamin D3) 25 25 mcg PO DAILY 08/03/20 12/23/20 mcg (1,000 unit) tablet Previous Rx's Medication Instructions Recorded meclizine 25 mg tablet 25 mg PO DAILY PRN #30 tab 10/30/20 atenolol 25 mg tablet 25 mg PO DAILY #90 tab 12/20/20 albuterol sulfate 90 mcg/actuation 2 puff PO Q4H PRN #8.5 g 12/22/20 aerosol inhaler ipratropium 0.5 mg-albuterol 3 mg 3 ml INHALATION Q6H PRN #180 ml 12/22/20 (2.5 mg base)/3 mL nebulization soln mometasone-formoterol HFA 200 2 puff INHALATION DAILY #13 g 03/05/21 mcg-5 mcg/actuation aerosol inhaler <Dory Gamble NP - Last Filed: 12/24/20 14:18> DS: Summary Hospital Course Hospital Course: HP as per admitting provider This is a 55 year old female with a history of COPD who presents to the ED with shortness of breath. Yesterday she did a lot of cleaning and it was very niki. She woke up around 1am feeling short of breath. She used her nebulizer machine for a breathing treatment, but did not get any relief. She denied any fever, chills or associated cough. She denies any recent sick contacts. She came to the ED for evaluation. Her labwork was significant for white count of 11.6. Chest xray showed no evidence of pneumonia. She received a breathing treatment and solu-medrol in the ED. She became short of breath with walking to the bathroom and her oxygen dropped to 86% on room air however she was not using oxygen at that time. She does have oxygen that she uses at night and it seems from previous notes that she is supposed to use it with activity as well . Acute on chronic respiratory failure. Treated with IV solumedrol, scheduled duoneb treatments. No hypoxia noted. Continued on 2 liters nasal canula while inpatient. Will discharge home with 4 days of Prednisone and continue inhalors at home. Tachycardia. Continue atenolol. Attending: Dr. Cain <Dory Gamble NP - Last Filed: 12/24/20 14:18> Time Spent with Patient Time attestation: Total time spent providing and/or coordinating discharge services: <Dory Gamble NP - Last Filed: 12/24/20 14:18> Discharge coordination time: Greater than 30 minutes <Dory Gamble NP - Last Filed: 12/24/20 14:18> Physical Exam Vital Signs: Vital Signs: Last Vital Signs Temp 98.3 F 12/23/20 07:51 Pulse 78 12/23/20 08:02 Resp 18 12/23/20 07:51 BP 107/70 12/23/20 07:51 Pulse Ox 96 12/23/20 07:51 Body Mass Index 21.6 <Dory Gamble NP - Last Filed: 12/24/20 14:18> Appearing in no acute distress head is normocephalic atraumatic eyes pupils are PERRLA sclera is anicteric mouth throat mucous membranes are intact and moist neck is supple no lymphadenopathy, no JVD noted lung sounds diminshed heart regular rate rhythm, clear S1, S2 positive bowel sounds, abdomen is soft, nontender neuro patient is alert x3, no focal deficits <Dory Gamble NP - Last Filed: 12/24/20 14:18> Discharge Plan Discharge Anticipated Discharge Date/Time: 12/23/20 11:35 <Dory Gamble NP - Last Filed: 12/24/20 14:18> Patient Disposition: Home, Self-Care <Dory Gamble NP - Last Filed: 12/24/20 14:18> Referrals: Michael Rosen MD [Primary Care Provider] - <Dory Gamble NP - Last Filed: 12/24/20 14:18> Discharge Medications: New prednisone 20 mg tablet 40 mg PO DAILY 5 Days Qty: 10 RF: 0 Continued meclizine 25 mg tablet 25 mg PO DAILY PRN (Reason: dizziness) Qty: 30 RF: 1 atenolol 25 mg tablet 25 mg PO DAILY Qty: 90 RF: 1 albuterol sulfate 90 mcg/actuation HFA aerosol inhaler 2 puff PO Q4H PRN (Reason: shortness of breath or wheezing) Qty: 8.5 RF: 0 ipratropium-albuterol 0.5 mg-3 mg(2.5 mg base)/3 mL solution for nebulization 3 ml inhalation Q6H PRN (Reason: Shortness Of Breath Or Wheezing) Qty: 180 RF: 0 Dulera 200-5 mcg/actuation HFA aerosol inhaler 2 puff INHALATION DAILY Qty: 13 RF: 2 cholecalciferol (vitamin D3) 25 mcg (1,000 unit) tablet 25 mcg PO DAILY RF: 0 <Dory Gamble NP - Last Filed: 12/24/20 14:18> Discharge Orders: Discharge Order (Routine); Ordered 12/23/20 Ordered By: Dory Gamble <Dory Gamble NP - Last Filed: 12/24/20 14:18> Diet: advance to usual diet <Dory Gamble NP - Last Filed: 12/24/20 14:18> advance to usual diet <Ramesh Cain MD - Last Filed: 12/24/20 17:10> Activity on Discharge: As tolerated <Dory Gamble NP - Last Filed: 12/24/20 14:18> As tolerated <Ramesh Cain MD - Last Filed: 12/24/20 17:10> Stand Alone Forms: Patient Portal Discharge page <Dory Gamble NP - Last Filed: 12/24/20 14:18> Care Plan Goals: Prevention of hospitalizations for COPD. <Dory Gamble NP - Last Filed: 12/24/20 14:18> Health Concerns: Better control of COPD. <Dory Gamble NP - Last Filed: 12/24/20 14:18> Plan of Treatment: Continue prednisone for 4 more days, continue home inhalors. Follow up with primary care provider as needed. <Dory Gamble NP - Last Filed: 12/24/20 14:18> Discharge Date/Time: 12/23/20 13:37 <Dory Gamble NP - Last Filed: 12/24/20 14:18>
[2020-12-23 11:32] VITALS: PULSE 74; O2SAT 965
[2020-12-23 11:43] VITALS: BP 98/73; PULSE 87; RESP 18; TEMP 36.2; O2SAT 94
--- NOTE | 2020-12-23 12:06 | MHC.CM.PN ---
PT DISCHARGING HOME TODAY WITH NO SERVICES. FAMILY TO TRANSPORT
== END 2020-12-23 13:37 | disposition home or self-care (01) ==
LOC: HO.ED 06:04 → HO.EDOVER 08:04 → HO.S3 08:24
PROVIDERS: Admitting Provider Hospitalist; Emergency Provider Emergency Medicine Emergency Medical Services; PCP Internal Medicine; Visit Provider Family Medicine
DX: J44.1 Chronic obstructive pulmonary disease with (acute) exacerbation (principal); R06.02 Shortness of breath; R06.00 Dyspnea, unspecified; R09.02 Hypoxemia; I45.2 Bifascicular block; R94.31 Abnormal electrocardiogram [ECG] [EKG]; Z88.0 Allergy status to penicillin; Z88.8 Allergy status to other drugs, medicaments and biological substances; Z88.1 Allergy status to other antibiotic agents; Z91.040 Latex allergy status; Z20.822 Contact with and (suspected) exposure to COVID-19; Z99.81 Dependence on supplemental oxygen; Z79.899 Other long term (current) drug therapy
CPT/HCPCS: 36415; 71045; 80053; 81001; 83605; 84484; 85025; 87635; 93005; 94640; 96374; 99218; 99285; J1650; J2405; J2920; J2930

== ENCOUNTER → 2020-12-27 09:52 | Outpatient (BNVA) | payer OTHER, SELFPAY | PROVIDERS: PCP Internal Medicine; Visit Provider Internal Medicine | DX: J44.1 Chronic obstructive pulmonary disease with (acute) exacerbation (principal); R09.02 Hypoxemia; F41.9 Anxiety disorder, unspecified; J30.9 Allergic rhinitis, unspecified; Z79.52 Long term (current) use of systemic steroids | CPT/HCPCS: 99212 ==

== ENCOUNTER 2021-01-23 01:50 | Emergency (ER) | payer OTHER, SELFPAY ==
--- NOTE | ~2021-01-23 | XR_ITS ---
EXAMINATION: XR CHEST CLINICAL INFORMATION: Shortness of breath COMPARISON: 12/22/2020 TECHNIQUE: Frontal view of the chest was obtained. FINDINGS: Normal symmetric lung volumes. No parenchymal consolidation. No pleural effusion. No pneumothorax. Cardiomediastinal silhouette and pulmonary vascularity are within normal limits. Aorta is atherosclerotic. No acute osseous abnormalities. XR/XR chest 1V IMPRESSION: Unremarkable examination.
--- NOTE | 2021-01-23 02:07 | ECG_ITS ---
Test Reason : SOB Blood Pressure : / mmHG Vent. Rate : 088 BPM Atrial Rate : 088 BPM P-R Int : 144 ms QRS Dur : 106 ms QT Int : 402 ms P-R-T Axes : 065 -72 057 degrees QTc Int : 486 ms Normal sinus rhythm Incomplete right bundle branch block Left anterior fascicular block Prolonged QT Abnormal ECG No previous ECGs available Referred By: Mila Emerson Electronically Signed By:KENNETH CHAMBERS MD
[2021-01-23 02:08] VITALS: BP 153/93; PULSE 115; PULSE 98; RESP 16; TEMP 36.7; O2SAT 97; BMI 23.8
--- NOTE | 2021-01-23 02:12 | ED_ITS ---
HPI - Arrhythmia/Palpitations General Chief Complaint: Upper Respiratory Symptoms Stated Complaint: DIFF BREATHING (95%) S/P 1ST COVID VACC T-1 Time Seen by Provider: 01/23/21 02:07 History of Present Illness HPI narrative: Patient is a 55-year-old female with a history of anxiety. Jonathon montes de [place]ca cole her 1st COVID vaccine earlier today presents today with having palpitation. Generalized malaise. Shortness of breath. Patient denies any coughing or congestion or upper respiratory symptoms. Patient has a history of asthma. Baseline is on 2 L of oxygen at home. No fever no chills. No leg pain. Feels palpitation. Feels increased respiratory rate. Patient has a history of anxiety with same feelings. Denies any leg swelling. No history diabetes, hypertension, mi, family history of [place]. Patient does not smoke. Does have a history of asthma. Related Data Home Medications Medication Instructions Recorded Confirmed cholecalciferol (vitamin D3) 25 25 mcg PO DAILY 08/03/20 12/23/20 mcg (1,000 unit) tablet Previous Rx's Medication Instructions Recorded meclizine 25 mg tablet 25 mg PO DAILY PRN #30 tab 10/30/20 atenolol 25 mg tablet 25 mg PO DAILY #90 tab 12/20/20 albuterol sulfate 90 mcg/actuation 2 puff PO Q4H PRN #8.5 g 12/22/20 aerosol inhaler ipratropium 0.5 mg-albuterol 3 mg 3 ml INHALATION Q6H PRN #180 ml 12/22/20 (2.5 mg base)/3 mL nebulization soln mometasone-formoterol HFA 200 2 puff INHALATION DAILY #13 g 12/22/20 mcg-5 mcg/actuation aerosol inhaler prednisone 5 mg tablet 5 mg PO DAILY 30 Days #30 tab 12/27/20 prednisone 40 mg PO DAILY 5 Days #10 tab 01/23/21 Allergies Allergy/AdvReac Type Severity Reaction Status Date / Time ibuprofen [IBUPROFEN] Allergy Severe ASTHMA , Verified 12/27/20 10:03 shortness of breath Penicillins Allergy Mild Nausea Verified 12/27/20 10:03 amoxicillin Allergy Unknown shortness Verified 12/27/20 10:03 of breath aspirin [ASPIRIN] Allergy Unknown ASTHMA, Verified 12/27/20 10:03 shortness of breath latex [LATEX] Allergy Unknown UNKNOWN Verified 12/27/20 10:03 montelukast AdvReac Severe headaches Verified 11/19/20 01:30 Review of Systems Review of Systems: Yes all other systems are reviewed and are negative [facility] Past Medical History Medical History Allergic rhinosinusitis COPD (chronic obstructive pulmonary disease) Hypoxemia requiring supplemental oxygen Tachycardia Surgical History H/O breast biopsy Family History Family History Other Asthma Social History Social History Household Members: Children Housing: House Alcohol intake: current Alcohol intake frequency: holidays/special occasions only Smoking Status: Never smoker Second Hand Smoke Exposure: Yes Advance Directives: No service: No Current occupational status: disabled Physical Exam Vital Signs: Vital Signs: Last Vital Signs Temp 98.1 F 01/23/21 02:08 Pulse 86 01/23/21 04:00 Resp 16 01/23/21 04:00 BP 136/80 01/23/21 04:00 Pulse Ox 96 01/23/21 04:00 Body Mass Index 23.8 Appearance: Alert. Oriented X3. No acute distress. Eyes: Pupils equal, round and reactive to light. ENT: Pharynx normal. Neck: Normal inspection. Neck supple. No lymph nodes noted. No crepitus CVS: Normal heart rate and rhythm. Pulses normal. Normal S1 and S2 Respiratory: No respiratory distress. Breath sounds normal. No Wheezing. No rales Abdomen: Soft and nontender. No rigidity. No distention. good BS x4 Skin: Skin warm and dry. Normal skin color. Normal skin turgor. Extremities: No lower extremity edema. Neurovascular intact to all extremities. No Lacerations. No Rash Neuro: Oriented X 3. No motor deficit. No sensory deficit. Moving all extermities. No slurred speech MDM - Arrhythmia/Palpitations MDM Narrative Medical decision making narrative: Patient's D-dimer is less than 200 no evidence for DVT. Chest x-ray negative for pneumonia. Patient's O2 sat remained at 92% on room air. Baseline patient is on 2 L of oxygen on home on 2 L patient is satting 96%. Will discharge patient home. Likely secondary to anxity but cannot rule out the possibility of asthma. Will go ahead and start patient on steroid taper for few days. Close follow-up on an outpatient basis. In stable condition. Differential Diagnosis Differential diagnosis: Likely anxiety Lab Data Result diagrams: 01/23/21 02:41 01/23/21 02:41 Labs: Lab Results 01/23/21 01/23/21 01/23/21 Range/Units 02:41 02:41 02:41 WBC 8.1 (4.8-10.8) X10*3/uL RBC 4.64 (4.20-5.50) X10*6/uL Hgb 14.6 (12.0-16.0) g/dl Hct 44.4 (37-47) % MCV 95.7 (80-98) fL MCH 31.5 (27.0-33.0) pg MCHC 32.9 (31.0-35.0) g/dl RDW 11.9 (11.0-16.0) % Plt Count 320 (160-400) X10*3/uL MPV 8.7 L (9.4-12.3) fL Immature Gran % (Auto) 0.2 (0.0-0.4) % Neut % (Auto) 52.6 (45-73) % Lymph % (Auto) 31.9 (20-40) % [place] % (Auto) 8.7 (2-11) % Eos % (Auto) 6.1 H (0-4) % Baso % (Auto) 0.5 (0-2) % Lymph # (Auto) 2.6 (1.2-4.9) X10*3/uL [place] # (Auto) 0.7 (0.1-1.2) X10*3/uL Eos # (Auto) 0.5 H (0.0-0.4) X10*3/uL Baso # (Auto) 0.0 (0.0-0.2) X10*3/uL Abs Immat Gran (auto) 0.02 (0.00-0.03) X10*3/uL Absolute Neuts (auto) 4.3 (2.0-8.3) X10*3/uL Absolute Nucleated RBC 0.000 (0.0-0.012) X10*3/uL Nucleated RBC % (auto) 0.0 (0.0-0.2) /100WBC D-Dimer < 200 NG/ML Sodium 141 (135-145) mmol/L Potassium 4.3 D (3.3-5.1) mmol/L Chloride 106 (96-108) mmol/L Carbon Dioxide 27 (22-29) mmol/L Anion Gap 12 (12-20) BUN 14 (9-16) mg/dL Creatinine 0.72 (0.5-1.4) mg/dL Estim Creat Clear Calc 78.5 Estimated GFR > 60 Random Glucose 93 (60-115) mg/dL Calcium 9.1 (8.4-10.2) mg/dL Troponin I High Sens (<3.5-17.0) ng/L COVID-19 (AL) (Negative) COVID-19 Clin Com 01/23/21 01/23/21 Range/Units 02:41 02:41 WBC (4.8-10.8) X10*3/uL RBC (4.20-5.50) X10*6/uL Hgb (12.0-16.0) g/dl Hct (37-47) % MCV (80-98) fL MCH (27.0-33.0) pg MCHC (31.0-35.0) g/dl RDW (11.0-16.0) % Plt Count (160-400) X10*3/uL MPV (9.4-12.3) fL Immature Gran % (Auto) (0.0-0.4) % Neut % (Auto) (45-73) % Lymph % (Auto) (20-40) % [place] % (Auto) (2-11) % Eos % (Auto) (0-4) % Baso % (Auto) (0-2) % Lymph # (Auto) (1.2-4.9) X10*3/uL [place] # (Auto) (0.1-1.2) X10*3/uL Eos # (Auto) (0.0-0.4) X10*3/uL Baso # (Auto) (0.0-0.2) X10*3/uL Abs Immat Gran (auto) (0.00-0.03) X10*3/uL Absolute Neuts (auto) (2.0-8.3) X10*3/uL Absolute Nucleated RBC (0.0-0.012) X10*3/uL Nucleated RBC % (auto) (0.0-0.2) /100WBC D-Dimer NG/ML Sodium (135-145) mmol/L Potassium (3.3-5.1) mmol/L Chloride (96-108) mmol/L Carbon Dioxide (22-29) mmol/L Anion Gap (12-20) BUN (9-16) mg/dL Creatinine (0.5-1.4) mg/dL Estim Creat Clear Calc Estimated GFR Random Glucose (60-115) mg/dL Calcium (8.4-10.2) mg/dL Troponin I High Sens < 3.5 (<3.5-17.0) ng/L COVID-19 (AL) Negative (Negative) COVID-19 Clin Com See Note Discharge Plan Discharge Clinical Impression: Anxiety, Asthma Patient Disposition: Home, Self-Care Instructions: Asthma (ED), Anxiety (ED) Prescriptions: New prednisone 20 mg tablet 40 mg PO DAILY 5 Days Qty: 10 RF: 0 No Action meclizine 25 mg tablet 25 mg PO DAILY PRN (Reason: dizziness) Qty: 30 RF: 1 atenolol 25 mg tablet 25 mg PO DAILY Qty: 90 RF: 1 albuterol sulfate 90 mcg/actuation HFA aerosol inhaler 2 puff PO Q4H PRN (Reason: shortness of breath or wheezing) Qty: 8.5 RF: 0 ipratropium-albuterol 0.5 mg-3 mg(2.5 mg base)/3 mL solution for nebulization 3 ml inhalation Q6H PRN (Reason: Shortness Of Breath Or Wheezing) Qty: 180 RF: 0 Dulera 200-5 mcg/actuation HFA aerosol inhaler 2 puff INHALATION DAILY Qty: 13 RF: 2 cholecalciferol (vitamin D3) 25 mcg (1,000 unit) tablet 25 mcg PO DAILY RF: 0 prednisone 5 mg tablet 5 mg PO DAILY 30 Days Qty: 30 RF: 1 Referrals: Michael Rosen MD [Primary Care Provider] - 2 days
[2021-01-23] MEDS: 0.9 % Sodium Chloride 1,000 ML 999 ML IV (02:44)
[2021-01-23 02:47] LABS: MANUAL DIFF FLAG NO
[2021-01-23 02:49] LABS: Basophils Percent Auto 0.5 % (0-2); Eosinophils Absolute Auto 0.5 X10*3/uL (0.0-0.4); Eosinophils Percent Auto 6.1 % (0-4); Hematocrit 44.4 % (37-47); Hemoglobin 14.6 g/dl (12.0-16.0); Imm Gran Abs Auto 0.02 X10*3/uL (0.00-0.03); Imm Gran Pct Auto 0.2 % (0.0-0.4); Lymphocytes Absolute Auto 2.6 X10*3/uL (1.2-4.9); Lymphocytes Percent Auto 31.9 % (20-40); Mean Corpuscular HGB Conc 32.9 g/dl (31.0-35.0); Mean Corpuscular Hemoglobin 31.5 pg (27.0-33.0); Mean Corpuscular Volume 95.7 fL (80-98); Mean Platelet Volume 8.7 fL (9.4-12.3); Monocytes Absolute Auto 0.7 X10*3/uL (0.1-1.2); Monocytes Percent Auto 8.7 % (2-11); Neutrophils Absolute Auto 4.3 X10*3/uL (2.0-8.3); Neutrophils Percent Auto 52.6 % (45-73); Platelet Count 320 X10*3/uL (160-400); Red Blood Count 4.64 X10*6/uL (4.20-5.50); Red Cell Distribution Width 11.9 % (11.0-16.0); White Blood Count 8.1 X10*3/uL (4.8-10.8)
--- NOTE | 2021-01-23 02:54 | PC.NURSE ---
HL PLACED TO LAC, LABS DRAWN TO LAB. COVID SWAB OBTAINED TO LAB. PT REFUSED ATIVAN. PT REQUESTING ALBUTEROL BUT DOES NOT THINK SHE NEEDS IT. PT AWARE. PT IS PO 96% ON 2L NC, WILL CONTINUE TO MONITOR PT.
[2021-01-23 03:04] LABS: D Dimer < 200 NG/ML
[2021-01-23 03:09] LABS: COVID-19 Test Negative (Negative); IDNOW Serial# 9DD0AD1C
[2021-01-23 03:14] LABS: Troponin-I High Sensitivity < 3.5 ng/L (<3.5-17.0)
[2021-01-23 03:19] LABS: Anion Gap 12 (12-20); Blood Urea Nitrogen 14 mg/dL (9-16); Calcium 9.1 mg/dL (8.4-10.2); Carbon Dioxide 27 mmol/L (22-29); Chloride 106 mmol/L (96-108); Creatinine Clr Calc Pharmacy 78.5; Estimated Glomerular Filt Rate > 60; Glucose Random 93 mg/dL (60-115); Potassium 4.3 mmol/L (3.3-5.1); Sodium 141 mmol/L (135-145)
[2021-01-23] MEDS: Albuterol Sulfate (0.083%) 2.5 MG/3 ML VIAL.NEB INHALE (03:46)
[2021-01-23 04:00] VITALS: BP 136/80; PULSE 86; RESP 16; O2SAT 96
--- NOTE | 2021-01-23 05:08 | PC.NURSE ---
PT STATES IM STILL FEELING SOB PT ON 2L NC WITH PO 97% LUNGS CLEAR BY AUSCULTATION. AWARE.
[2021-01-23] MEDS: predniSONE 20 MG TABLET 40 MG PO (05:55)
--- NOTE | 2021-01-23 06:50 | PC.NURSE ---
PT AWAITING FOR EMS RIDE HOME
[2021-01-23 07:02] VITALS: BP 117/69; PULSE 89; RESP 16; TEMP 36.8; O2SAT 97
== END 2021-01-23 07:36 | disposition home or self-care (01) ==
PROVIDERS: Emergency Provider Emergency Medicine Emergency Medical Services; PCP Internal Medicine
DX: F41.9 Anxiety disorder, unspecified (principal); J45.909 Unspecified asthma, uncomplicated; Z20.822 Contact with and (suspected) exposure to COVID-19
CPT/HCPCS: 36415; 71045; 80048; 84484; 85025; 85379; 87635; 93005; 96360; 96374; 99284

== ENCOUNTER → 2021-02-19 12:24 | Outpatient (BNVA) | payer OTHER, SELFPAY | PROVIDERS: PCP Internal Medicine; Visit Provider Internal Medicine | DX: R09.02 Hypoxemia (principal); J44.1 Chronic obstructive pulmonary disease with (acute) exacerbation; R00.0 Tachycardia, unspecified; F41.9 Anxiety disorder, unspecified; Z99.81 Dependence on supplemental oxygen | CPT/HCPCS: 99212 ==

== ENCOUNTER → 2021-03-26 10:31 | Outpatient (BNVA) | payer OTHER, SELFPAY | PROVIDERS: PCP Internal Medicine; Visit Provider Internal Medicine | DX: J44.1 Chronic obstructive pulmonary disease with (acute) exacerbation (principal); J30.9 Allergic rhinitis, unspecified; R09.02 Hypoxemia; F41.9 Anxiety disorder, unspecified; R00.0 Tachycardia, unspecified; Z99.81 Dependence on supplemental oxygen | CPT/HCPCS: 99212 ==

== ENCOUNTER 2021-04-02 19:50 | Emergency (ER) | payer OTHER, SELFPAY ==
--- NOTE | ~2021-04-02 | XR_ITS ---
EXAMINATION: XR CHEST CLINICAL INFORMATION: Shortness of breath COMPARISON: Chest x-ray 01/23/2021 TECHNIQUE: Frontal portable view of the chest was obtained. 10:05 PM FINDINGS: No significant abnormality is noted involving the heart, lungs, mediastinum, bony thorax or soft tissues. XR/XR chest 1V IMPRESSION: Unremarkable examination.
[2021-04-02 21:01] VITALS: BP 143/85; PULSE 87; RESP 22; TEMP 37.2; O2SAT 94; BMI 23.3
[2021-04-02 21:32] VITALS: BP 138/93; PULSE 82; RESP 16; TEMP 36.9; O2SAT 95
--- NOTE | 2021-04-02 21:46 | ECG_ITS ---
Test Reason : SOB Blood Pressure : / mmHG Vent. Rate : 075 BPM Atrial Rate : 075 BPM P-R Int : 158 ms QRS Dur : 108 ms QT Int : 404 ms P-R-T Axes : 080 -50 053 degrees QTc Int : 451 ms Normal sinus rhythm Left axis deviation Incomplete right bundle branch block Abnormal ECG When compared with ECG of 23-JAN-2021 03:50, No significant change was found Referred By: Mila Emerson Electronically Signed By:JUNG CANTOR
--- NOTE | 2021-04-02 21:48 | ED.ASTHMA ---
HPI - Asthma General Chief Complaint: Asthma Stated Complaint: COPD Time Seen by Provider: 04/02/21 21:46 History of Present Illness HPI Narrative: 54-year-old female with a history of asthma. History of COPD. Never been admitted. Has home oxygen she uses 2 L of oxygen on a as needed basis. Patient denies any diaphoresis. No chest pain. Positive coughing positive upper respiratory symptoms. Patient received her 2nd coronavirus vaccine about 2 months ago. No fever no chills. Positive generalized malaise. Patient is from home. No chest pain. Patient denies any history of congestive heart failure. No history of heart attack. No history of stroke. Patient never smoked. Related Data Previous Rx's Medication Instructions Recorded meclizine 25 mg tablet 25 mg PO DAILY PRN #30 tab 10/30/20 atenolol 25 mg tablet 25 mg PO DAILY #90 tab 12/20/20 mometasone-formoterol HFA 200 2 puff INHALATION DAILY #13 g 12/22/20 mcg-5 mcg/actuation aerosol inhaler cholecalciferol (vitamin D3) 25 25 mcg PO DAILY #90 tab 01/26/21 mcg (1,000 unit) tablet albuterol sulfate 90 mcg/actuation 2 puff INHALATION Q4H PRN #8.5 g 02/12/21 aerosol inhaler ipratropium 0.5 mg-albuterol 3 mg 3 ml INHALATION Q6H PRN #180 ml 02/12/21 (2.5 mg base)/3 mL nebulization soln prednisone 5 mg tablet 5 mg PO BID #20 tab 02/19/21 albuterol sulfate 1.25 mg/3 mL 2.5 mg INHALATION Q4-6H PRN 30 03/26/21 solution for nebulization Days #75 ml prednisolone sodium phosphate 10 10 mg PO BID 5 Days #10 tab 03/26/21 mg disintegrating tablet prednisone 40 mg PO DAILY #10 tab 04/03/21 Allergies Allergy/AdvReac Type Severity Reaction Status Date / Time ibuprofen [IBUPROFEN] Allergy Severe ASTHMA , Verified 03/26/21 11:01 shortness of breath Penicillins Allergy Mild Nausea Verified 03/26/21 11:01 amoxicillin Allergy Unknown shortness Verified 03/26/21 11:01 of breath aspirin [ASPIRIN] Allergy Unknown ASTHMA, Verified 03/26/21 11:01 shortness of breath latex [LATEX] Allergy Unknown UNKNOWN Verified 03/26/21 11:01 montelukast AdvReac Severe headaches Verified 03/26/21 11:01 Review of Systems Review of Systems: Constitutional: No Weight loss, No Fever, No Chills, No Night Sweats, No Fatigue, No Malaise ENT/Mouth: No Hearing loss, No Ear Pain, No Nasal Congestion, No Sinus Pain, No Hoarseness, No sore throat, No Rhinorrhea, No Swallowing Difficulty Eyes: No Eye Pain, No Swelling, No Redness, No Foreign Body, No Discharge, No Vision Changes Cardiovascular: No Chest Pain, No SOB, No Dyspnea on Exertion, No Orthopnea, No Edema, No Palpitations Respiratory: Positive Cough, No Sputum, positive Wheezing, No Smoke Exposure, positive Dyspnea Gastrointestinal: No Nausea, No Vomiting, No Diarrhea, No Constipation, No abdominal Pain, No Hematochezia, No Melena Genitourinary: no irregular bleeding, No Dysuria, No Urinary Frequency, No Hematuria, No Urinary Incontinence, No Urgency, No Flank Pain, No Urinary Flow Changes, No Hesitancy Musculoskeletal: No joint pain, No Myalgias, No Joint Swelling Skin: No Skin Lesions, No rash Neuro: No Weakness, No Numbness, No Paresthesias, No Loss of Consciousness, No Dizziness, No Headache Psych: No Anxiety/Panic, No Depression, No SI/HI/AH/VH, No Social Issues, Heme/Lymph: No Bruising, No Bleeding,No Lymphadenopathy Endocrine: No Polyuria, No Polydipsia, No Temperature Intolerance PMFSH Past Medical History Medical History Allergic rhinosinusitis COPD (chronic obstructive pulmonary disease) Hypoxemia requiring supplemental oxygen Tachycardia Surgical History H/O breast biopsy Family History Family History Other Asthma Social History Social History Household Members: Children Housing: House Do you presently have visiting nurse or other home services: No Alcohol intake: never Patient Tobacco Use Status: Never used Tobacco Second Hand Smoke Exposure: Yes Use of substances other than those prescribed or required for medical reasons: No Advance Directives: No Advance Directives Information Provided: Yes Patient : No service: No Current occupational status: disabled Physical Exam Vital Signs: Vital Signs: Last Vital Signs Temp 98.5 F 04/02/21 21:32 Pulse 77 04/02/21 23:05 Resp 16 04/02/21 21:32 BP 138/93 H 04/02/21 21:32 Pulse Ox 95 04/02/21 21:32 Body Mass Index 23.3 Appearance: Alert. Oriented X3. No acute distress. Eyes: Pupils equal, round and reactive to light. ENT: Pharynx normal. Neck: Normal inspection. Neck supple. No lymph nodes noted. No crepitus CVS: Normal heart rate and rhythm. Pulses normal. Normal S1 and S2 Respiratory: Positive increased work of breathing. Positive wheezing bilaterally. No rales Abdomen: Soft and nontender. No rigidity. No distention. good BS x4 Skin: Skin warm and dry. Normal skin color. Normal skin turgor. Extremities: No lower extremity edema. Neurovascular intact to all extremities. No Lacerations. No Rash Neuro: Oriented X 3. No motor deficit. No sensory deficit. Moving all extermities. No slurred speech MDM - Asthma MDM Narrative Medical decision making narrative: Patient given neb treatment., monitor in the emergency department. Given steroids. Symptom improved dramatically. X-ray negative for infiltrate. Lungs are now clear. Will discharge patient home. Close follow-up outpatient basis. Lab Data Result diagrams: 04/02/21 21:57 04/02/21 21:58 Labs: Lab Results 04/02/21 04/02/21 04/02/21 Range/Units 21:57 21:57 21:57 WBC 9.4 (4.8-10.8) X10*3/uL RBC 4.58 (4.20-5.50) X10*6/uL Hgb 14.7 (12.0-16.0) g/dl Hct 43.0 (37-47) % MCV 93.9 (80-98) fL MCH 32.1 (27.0-33.0) pg MCHC 34.2 (31.0-35.0) g/dl RDW 11.7 (11.0-16.0) % Plt Count 316 (160-400) X10*3/uL MPV 8.9 L (9.4-12.3) fL Immature Gran % (Auto) 0.2 (0.0-0.4) % Neut % (Auto) 47.8 (45-73) % Lymph % (Auto) 41.0 H (20-40) % [place] % (Auto) 8.0 (2-11) % Eos % (Auto) 2.7 (0-4) % Baso % (Auto) 0.3 (0-2) % Lymph # (Auto) 3.9 (1.2-4.9) X10*3/uL [place] # (Auto) 0.8 (0.1-1.2) X10*3/uL Eos # (Auto) 0.3 (0.0-0.4) X10*3/uL Baso # (Auto) 0.0 (0.0-0.2) X10*3/uL Abs Immat Gran (auto) 0.02 (0.00-0.03) X10*3/uL Absolute Neuts (auto) 4.5 (2.0-8.3) X10*3/uL Absolute Nucleated RBC 0.000 (0.0-0.012) X10*3/uL Nucleated RBC % (auto) 0.0 (0.0-0.2) /100WBC Sodium (135-145) mmol/L Potassium (3.3-5.1) mmol/L Chloride (96-108) mmol/L Carbon Dioxide (22-29) mmol/L Anion Gap (12-20) BUN (9-16) mg/dL Creatinine (0.5-1.4) mg/dL Estim Creat Clear Calc Estimated GFR Random Glucose (60-115) mg/dL Calcium (8.4-10.2) mg/dL Troponin I High Sens < 3.5 (<3.5-17.0) ng/L B-Natriuretic Peptide 16 (<100) pg/mL Coronavirus (PCR) NEGATIVE (Negative) Influenza Type A (PCR) NEGATIVE (Negative) Influenza Type B (PCR) NEGATIVE (Negative) RSV RNA Qual (PCR) NEGATIVE (Negative) 04/02/21 Range/Units 21:58 WBC (4.8-10.8) X10*3/uL RBC (4.20-5.50) X10*6/uL Hgb (12.0-16.0) g/dl Hct (37-47) % MCV (80-98) fL MCH (27.0-33.0) pg MCHC (31.0-35.0) g/dl RDW (11.0-16.0) % Plt Count (160-400) X10*3/uL MPV (9.4-12.3) fL Immature Gran % (Auto) (0.0-0.4) % Neut % (Auto) (45-73) % Lymph % (Auto) (20-40) % [place] % (Auto) (2-11) % Eos % (Auto) (0-4) % Baso % (Auto) (0-2) % Lymph # (Auto) (1.2-4.9) X10*3/uL [place] # (Auto) (0.1-1.2) X10*3/uL Eos # (Auto) (0.0-0.4) X10*3/uL Baso # (Auto) (0.0-0.2) X10*3/uL Abs Immat Gran (auto) (0.00-0.03) X10*3/uL Absolute Neuts (auto) (2.0-8.3) X10*3/uL Absolute Nucleated RBC (0.0-0.012) X10*3/uL Nucleated RBC % (auto) (0.0-0.2) /100WBC Sodium 144 (135-145) mmol/L Potassium 4.5 (3.3-5.1) mmol/L Chloride 108 (96-108) mmol/L Carbon Dioxide 25 (22-29) mmol/L Anion Gap 16 (12-20) BUN 19 H (9-16) mg/dL Creatinine 0.80 (0.5-1.4) mg/dL Estim Creat Clear Calc 70.6 Estimated GFR > 60 Random Glucose 91 (60-115) mg/dL Calcium 9.6 (8.4-10.2) mg/dL Troponin I High Sens (<3.5-17.0) ng/L B-Natriuretic Peptide (<100) pg/mL Coronavirus (PCR) (Negative) Influenza Type A (PCR) (Negative) Influenza Type B (PCR) (Negative) RSV RNA Qual (PCR) (Negative) Discharge Plan Discharge Clinical Impression: COPD (chronic obstructive pulmonary disease), Asthma with acute exacerbation Patient Disposition: Home, Self-Care Instructions: Asthma (ED) Prescriptions: New prednisone 20 mg tablet 40 mg PO DAILY Qty: 10 RF: 0 No Action meclizine 25 mg tablet 25 mg PO DAILY PRN (Reason: dizziness) Qty: 30 RF: 1 atenolol 25 mg tablet 25 mg PO DAILY Qty: 90 RF: 1 Dulera 200-5 mcg/actuation HFA aerosol inhaler 2 puff INHALATION DAILY Qty: 13 RF: 2 cholecalciferol (vitamin D3) [Vitamin D3] 25 mcg (1,000 unit) tablet 25 mcg PO DAILY Qty: 90 RF: 1 albuterol sulfate 90 mcg/actuation HFA aerosol inhaler 2 puff inhalation Q4H PRN (Reason: for wheezing) Qty: 8.5 RF: 3 ipratropium-albuterol 0.5 mg-3 mg(2.5 mg base)/3 mL solution for nebulization 3 ml inhalation Q6H PRN (Reason: for wheezing) Qty: 180 RF: 3 prednisone 5 mg tablet 5 mg PO BID Qty: 20 RF: 0 prednisolone sodium phosphate 10 mg tablet,disintegrating 10 mg PO BID 5 Days Qty: 10 RF: 1 albuterol sulfate 1.25 mg/3 mL solution for nebulization 2.5 mg inhalation Q4-6H PRN (Reason: shortness of breath or wheezing) 30 Days Qty: 75 RF: 3 Referrals: [facility] [Primary Care Provider] - 2 days
[2021-04-02 22:02] LABS: MANUAL DIFF FLAG NO
[2021-04-02 22:03] LABS: Basophils Percent Auto 0.3 % (0-2); Eosinophils Absolute Auto 0.3 X10*3/uL (0.0-0.4); Eosinophils Percent Auto 2.7 % (0-4); Hemoglobin 14.7 g/dl (12.0-16.0); Imm Gran Abs Auto 0.02 X10*3/uL (0.00-0.03); Imm Gran Pct Auto 0.2 % (0.0-0.4); Lymphocytes Absolute Auto 3.9 X10*3/uL (1.2-4.9); Mean Corpuscular HGB Conc 34.2 g/dl (31.0-35.0); Mean Corpuscular Hemoglobin 32.1 pg (27.0-33.0); Mean Corpuscular Volume 93.9 fL (80-98); Mean Platelet Volume 8.9 fL (9.4-12.3); Monocytes Absolute Auto 0.8 X10*3/uL (0.1-1.2); Neutrophils Absolute Auto 4.5 X10*3/uL (2.0-8.3); Neutrophils Percent Auto 47.8 % (45-73); Platelet Count 316 X10*3/uL (160-400); Red Blood Count 4.58 X10*6/uL (4.20-5.50); Red Cell Distribution Width 11.7 % (11.0-16.0); White Blood Count 9.4 X10*3/uL (4.8-10.8)
[2021-04-02] MEDS: methylPREDNISolone Sod Succ 125 MG/2 ML VIAL IVPUSH (22:04)
[2021-04-02 22:31] LABS: Anion Gap 16 (12-20); Blood Urea Nitrogen 19 mg/dL (9-16); Calcium 9.6 mg/dL (8.4-10.2); Carbon Dioxide 25 mmol/L (22-29); Chloride 108 mmol/L (96-108); Creatinine Clr Calc Pharmacy 70.6; Estimated Glomerular Filt Rate > 60; Glucose Random 91 mg/dL (60-115); Potassium 4.5 mmol/L (3.3-5.1); Sodium 144 mmol/L (135-145)
[2021-04-02 22:39] LABS: B Type Natriuretic Peptide 16 pg/mL (<100); Troponin-I High Sensitivity < 3.5 ng/L (<3.5-17.0)
[2021-04-02 22:45] LABS: Influenza A PCR NEGATIVE (Negative); Influenza B PCR NEGATIVE (Negative); Resp Syncy Virus RNA Qual PCR NEGATIVE (Negative); SARS COV2 PCR INHOUSE NEGATIVE (Negative)
[2021-04-02 23:05] VITALS: PULSE 77; O2SAT 99
[2021-04-02] MEDS: Albuterol Sulfate (0.083%) 2.5 MG/3 ML VIAL.NEB 7.5 MG INHALE (23:05)
[2021-04-02] MEDS: Albuterol/Iprat 2.5/0.5MG 3 ML AMPUL.NEB INHALE (23:05)
== END 2021-04-03 01:00 | disposition home or self-care (01) ==
PROVIDERS: Emergency Provider Emergency Medicine Emergency Medical Services
DX: J45.901 Unspecified asthma with (acute) exacerbation (principal); J44.9 Chronic obstructive pulmonary disease, unspecified; Z99.81 Dependence on supplemental oxygen
CPT/HCPCS: 0241U; 36415; 71045; 80048; 83880; 84484; 85025; 93005; 94640; 94644; 96374; 99285; J2930

== ENCOUNTER 2021-05-09 08:54 | Emergency (ER) | payer OTHER, SELFPAY ==
--- NOTE | ~2021-05-09 | XR_ITS ---
EXAMINATION: XR CHEST CLINICAL INFORMATION: Shortness of breath COMPARISON: April 02, 2021 TECHNIQUE: 2 views of the chest were obtained. FINDINGS: There is hyperinflation of the lungs. There is some diminished vascularity seen peripherally consistent with COPD. No confluent pneumonitis is noted. No pneumothorax or pleural effusion. Heart normal size. No evidence of pulmonary edema. XR/XR chest 2V IMPRESSION: Emphysematous change. No acute parenchymal disease.
[2021-05-09 09:00] VITALS: BP 134/70; PULSE 81; RESP 22; TEMP 36.8; O2SAT 97; BMI 23.3
--- NOTE | 2021-05-09 09:05 | ECG_ITS ---
Test Reason : SHORT OF BREATH Blood Pressure : / mmHG Vent. Rate : 082 BPM Atrial Rate : 082 BPM P-R Int : 148 ms QRS Dur : 106 ms QT Int : 412 ms P-R-T Axes : 058 -74 037 degrees QTc Int : 481 ms Normal sinus rhythm Incomplete right bundle branch block Left anterior fascicular block Prolonged QT Abnormal ECG When compared with ECG of 02-APR-2021 22:19, No significant change was found Referred By: Anjali Samayoa Electronically Signed By:KENNETH CHAMBERS MD
[2021-05-09] MEDS: Albuterol/Iprat 2.5/0.5MG 3 ML AMPUL.NEB INHALE (09:20)
[2021-05-09 09:24] VITALS: PULSE 81; O2SAT 96
--- NOTE | 2021-05-09 09:26 | ED_ITS ---
HPI - SOB/Dyspnea General Chief Complaint: Dyspnea Stated Complaint: SOB HX ASTHMA,COPD Time Seen by Provider: 05/09/21 08:58 Source: patient and EMS Mode of arrival: EMS Limitations: no limitations History of Present Illness HPI Narrative: 55-year-old female with a past medical history of asthma, COPD here with complaints of shortness of breath over the last 2 days worsened this morning without any relief from her home nebulizers. The patient does have an occasional dry cough. No fevers, chills. No vomiting, diarrhea, chest pain. Used 5mg albuterol [employer] Related Data Previous Rx's Medication Instructions Recorded atenolol 25 mg tablet 25 mg PO DAILY #90 tab 12/20/20 mometasone-formoterol HFA 200 2 puff INHALATION DAILY #13 g 12/22/20 mcg-5 mcg/actuation aerosol inhaler albuterol sulfate 90 mcg/actuation 2 puff INHALATION Q4H PRN #8.5 g 02/12/21 aerosol inhaler ipratropium 0.5 mg-albuterol 3 mg 3 ml INHALATION Q6H PRN #180 ml 02/12/21 (2.5 mg base)/3 mL nebulization soln albuterol sulfate 1.25 mg/3 mL 2.5 mg INHALATION Q4-6H PRN 30 03/26/21 solution for nebulization Days #75 ml albuterol sulfate 2 inh INHALATION Q4H PRN #1 ea 05/09/21 ipratropium-albuterol 3 ml INHALATION Q6H PRN #180 ml 05/09/21 prednisone 40 mg PO DAILY #10 tab 05/09/21 Allergies Allergy/AdvReac Type Severity Reaction Status Date / Time ibuprofen [IBUPROFEN] Allergy Severe ASTHMA , Verified 04/27/21 11:20 shortness of breath Penicillins Allergy Mild Nausea Verified 04/27/21 11:20 amoxicillin Allergy Unknown shortness Verified 04/27/21 11:20 of breath aspirin [ASPIRIN] Allergy Unknown ASTHMA, Verified 04/27/21 11:20 shortness of breath latex [LATEX] Allergy Unknown UNKNOWN Verified 04/27/21 11:20 montelukast AdvReac Severe headaches Verified 04/27/21 11:20 Review of Systems Review of Systems: Yes all other systems are reviewed and are negative Constitutional: Constitutional: Reports no additional constitutional complaints, Denies body ache(s), Denies chills, Denies fever(s), Denies headache(s) and Denies weakness Eyes: Eyes: Reports no additional eye complaints and Denies change in vision ENT: Reports system reviewed and no additional complaints, except as documented, Denies dizziness, Denies headache(s), Denies nasal congestion, Denies nasal discharge and Denies neck pain Cardiovascular: Cardiovascular: Reports no additional cardiovascular complaints, Denies chest pain, Denies leg edema and Reports dyspnea Respiratory: Respiratory: Reports no additional respiratory complaints, Reports cough and Reports dyspnea Gastrointestinal: Gastrointestinal: Reports no additional gastrointestinal complaints, Denies abdominal pain, Denies diarrhea, Denies nausea and Denies vomiting Genitourinary: Genitourinary: Reports no additional female genitourinary complaints and Denies urinary incontinence Musculoskeletal: Musculoskeletal: Reports no additional musculoskeletal complaints, Denies back pain, Denies arthralgias, Denies joint swelling, Denies neck pain, Denies numbness and Denies tingling Integumentary/Breasts: Skin/Breast: Reports system reviewed and no additional complaints, except as docu and Denies rash Neurologic: Reports system reviewed and no additional complaints, except as documented, Denies Abnormal speech present, Denies dizziness, Denies heada james(s), Denies numbness, Denies tingling and Denies weakness PMFSH Past Medical History Attestation statement: The following information was validated with the patient. Source: old records reviewed and nursing notes reviewed Medical History Allergic rhinosinusitis COPD (chronic obstructive pulmonary disease) Hypoxemia requiring supplemental oxygen Tachycardia Surgical History (Reviewed 05/09/21 @ 09: by Anjali Samayoa NP) H/O breast biopsy Family History Family History (Reviewed 05/09/21 @ : by Anjali Samayoa NP) Other Asthma Social History Social History (Reviewed 05/09/21 @ : by Anjali Samayoa NP) Household Members: Children Housing: House Do you presently have visiting nurse or other home services: No Alcohol intake: never Patient Tobacco Use Status: Never used Tobacco Second Hand Smoke Exposure: Yes Advance Directives: No Advance Directives Information Provided: Yes service: No Current occupational status: disabled Physical Exam Vital Signs: Vital Signs: Last Vital Signs Temp 98.3 F 05/09/21 09:00 Pulse 81 05/09/21 09:24 Resp 28 H 05/09/21 10:53 BP 132/80 05/09/21 11:30 Pulse Ox 88 L 05/09/21 10:53 Oxygen Flow Rate 2 05/09/21 09:00 Body Mass Index 23.3 Const: General: cooperative, healthy appearing, comfortable and no acute distress Orientation/consciousness: patient oriented x3 Limitations: no limitations HENMT: Head: Yes normal to inspection Ears: hearing grossly normal bilaterally General nose exam: Normal external nose present Face and sinus: Yes normal facial exam Mouth: Normal oral and palatal mucosa present Throat: Yes posterior oropharynx normal Eyes: General: appearance normal, both eyes and all related structures Pupils: Equal, round and reactive pupils present Neck: Neck: Yes normal visual inspection Chest: Chest palpation & inspection: normal inspection of the chest Resp: Other: Mild expiratory wheezing throughout Effort & Inspection: normal respiratory effort Cardio: Rate: regular rate Rhythm: regular rhythm Peripheral pulses: Peripheral pulses 2+ throughout GI: Inspection: Yes normal to inspection Palpation (GI): Soft to palpation and nontender Auscultation: normal bowel sounds Back/Spine/Pelvis: Thoracic/Lumbar Spine: thoracic and lumbar spine normal to inspection Skin: General skin exam: no rashes or lesions noted Neuro: General: patient oriented x3, no focal motor deficits and normal sensation to monofilament Cranial nerves: Yes Equal, round and reactive pupils present Cognition (Neuro): normal cognition Speech: No Abnormal speech present Gait exam (Neuro): Normal gait present Motor exam (neuro): 5/5 motor strength present throughout Extrem: General: Yes normal to inspection Course Course Course Narrative: 55-year-old female here with complaints of shortness of breath and cough for the last 2 days worsened this morning unrelieved with home ne bulizers. On exam the patient is well appearing. She does have some mild tachypnea with a rate of 22 and prolonged expirations with mild expiratory wheezing throughout. This is from chronic lung disease and not from infection. Will check labs, EKG, chest x-ray, COVID screen. Will give DuoNeb, Solu-Medrol and magnesium and reassess 1050-labs unremarkable. EKG and chest X shows shows no acute finding. Patient ambulates to the bathroom and return was very tachypneic with a room air saturation of 88%. Will require admission. 1100-call out to medicine to discuss. 1145-at this time medicine does not feel like admission is required. Patient does have p.r.n. oxygen at home. She tells me that she feels quite tachypneic at home and does not feel safe and would like to be admitted for continuous treatments and observation. Therefore, medicine is requesting an ambulation trial on her prescribed home oxygen. 1230-patient ambulated with her normal oxygen requirements with a oxygen sa turation 92%. She feels comfortable being discharged home. Reviewed worrisome signs symptoms of when to return to the emergency department. Comfortable discharge home. MDM - SOB/Dyspnea Medical Records Attestation: I reviewed the patient's medical records. Lab Data Attestation: I reviewed the patient's lab results. Result diagrams: 05/09/21 09:28 05/09/21 09:28 Labs: Lab Results 05/09/21 05/09/21 05/09/21 Range/Units 09:28 09:28 09:28 WBC 7.0 (4.8-10.8) X10*3/uL RBC 4.66 (4.20-5.50) X10*6/uL Hgb 14.7 (12.0-16.0) g/dl Hct 43.8 (37-47) % MCV 94.0 (80-98) fL MCH 31.5 (27.0-33.0) pg MCHC 33.6 (31.0-35.0) g/dl RDW 11.9 (11.0-16.0) % Plt Count 310 (160-400) X10*3/uL MPV 8.8 L (9.4-12.3) fL Immature Gran % (Auto) 0.3 (0.0-0.4) % Neut % (Auto) 50.2 (45-73) % Lymph % (Auto) 35.1 (20-40) % [place] % (Auto) 7.9 (2-11) % Eos % (Auto) 5.6 H (0-4) % Baso % (Auto) 0.9 (0-2) % Lymph # (Auto) 2.4 (1.2-4.9) X10*3/uL [place] # (Auto) 0.6 (0.1-1.2) X10*3/uL Eos # (Auto) 0.4 (0.0-0.4) X10*3/uL Baso # (Auto) 0.1 (0.0-0.2) X10*3/uL Abs Immat Gran (auto) 0.02 (0.00-0.03) X10*3/uL Absolute Neuts (auto) 3.5 (2.0-8.3) X10*3/uL Absolute Nucleated RBC 0.000 (0.0-0.012) X10*3/uL Nucleated RBC % (auto) 0.0 (0.0-0.2) /100WBC Sodium 142 (135-145) mmol/L Potassium 3.8 (3.3-5.1) mmol/L Chloride 108 (96-108) mmol/L Carbon Dioxide 28 (22-29) mmol/L Anion Gap 10 L (12-20) BUN 13 (9-16) mg/dL Creatinine 0.78 (0.5-1.4) mg/dL Estim Creat Clear Calc 72.4 Estimated GFR > 60 Random Glucose 93 (60-115) mg/dL Calcium 9.2 (8.4-10.2) mg/dL Magnesium (1.6-2.6) mg/dL Total Bilirubin 0.8 (0.0-1.0) mg/dL Direct Bilirubin 0.3 (0.0-0.5) mg/dL AST 24 (5-31) U/L ALT 25 (0-31) U/L Alkaline Phosphatase 70 D (39-117) U/L Troponin I High Sens < 3.5 (<3.5-17.0) ng/L Total Protein 6.5 (6.5-8.0) g/dL Albumin 4.2 (3.5-5.0) g/dL COVID-19 (AL) (Negative) COVID-19 Clin Com 05/09/21 05/09/21 Range/Units 09:28 09:28 WBC (4.8-10.8) X10*3/uL RBC (4.20-5.50) X10*6/uL Hgb (12.0-16.0) g/dl Hct (37-47) % MCV (80-98) fL MCH (27.0-33.0) pg MCHC (31.0-35.0) g/dl RDW (11.0-16.0) % Plt Count (160-400) X10*3/uL MPV (9.4-12.3) fL Immature Gran % (Auto) (0.0-0.4) % Neut % (Auto) (45-73) % Lymph % (Auto) (20-40) % [place] % (Auto) (2-11) % Eos % (Auto) (0-4) % Baso % (Auto) (0-2) % Lymph # (Auto) (1.2-4.9) X10*3/uL [place] # (Auto) (0.1-1.2) X10*3/uL Eos # (Auto) (0.0-0.4) X10*3/uL Baso # (Auto) (0.0-0.2) X10*3/uL Abs Immat Gran (auto) (0.00-0.03) X10*3/uL Absolute Neuts (auto) (2.0-8.3) X10*3/uL Absolute Nucleated RBC (0.0-0.012) X10*3/uL Nucleated RBC % (auto) (0.0-0.2) /100WBC Sodium (135-145) mmol/L Potassium (3.3-5.1) mmol/L Chloride (96-108) mmol/L Carbon Dioxide (22-29) mmol/L Anion Gap (12-20) BUN (9-16) mg/dL Creatinine (0.5-1.4) mg/dL Estim Creat Clear Calc Estimated GFR Random Glucose (60-115) mg/dL Calcium (8.4-10.2) mg/dL Magnesium 2.0 (1.6-2.6) mg/dL Total Bilirubin (0.0-1.0) mg/dL Direct Bilirubin (0.0-0.5) mg/dL AST (5-31) U/L ALT (0-31) U/L Alkaline Phosphatase (39-117) U/L Troponin I High Sens (<3.5-17.0) ng/L Total Protein (6.5-8.0) g/dL Albumin (3.5-5.0) g/dL COVID-19 (AL) Negative (Negative) COVID-19 Clin Com See Note Discharge Plan Discharge Clinical Impression: Asthma with exacerbation Qualifiers: Asthma severity: moderate Asthma persistence: persistent Qualified Code(s): J45.41 - Moderate persistent asthma with (acute) exacerbation Patient Disposition: Home, Self-Care Instructions: Asthma (ED) Additional Instructions: Start prednisone tomorrow Return for worsening shortness of breath, fever, chest pain Prescriptions: New prednisone 20 mg tablet 40 mg PO DAILY Qty: 10 RF: 0 albuterol sulfate 90 mcg/actuation aerosol powdr breath activated 2 inh inhalation Q4H PRN (Reason: shortness of breath or wheezing) Qty: 1 RF: 0 ipratropium-albuterol 0.5 mg-3 mg(2.5 mg base)/3 mL solution for nebulization 3 ml inhalation Q6H PRN (Reason: shortness of breath or wheezing) Qty: 180 RF: 0 No Action atenolol 25 mg tablet 25 mg PO DAILY Qty: 90 RF: 1 Dulera 200-5 mcg/actuation HFA aerosol inhaler 2 puff INHALATION DAILY Qty: 13 RF: 2 albuterol sulfate 90 mcg/actuation HFA aerosol inhaler 2 puff inhalation Q4H PRN (Reason: for wheezing) Qty: 8.5 RF: 3 ipratropium-albuterol 0.5 mg-3 mg(2.5 mg base)/3 mL solution for nebulization 3 ml inhalation Q6H PRN (Reason: for wheezing) Qty: 180 RF: 3 albuterol sulfate 1.25 mg/3 mL solution for nebulization 2.5 mg inhalation Q4-6H PRN (Reason: shortness of breath or wheezing) 30 Days Qty: 75 RF: 3 Referrals: Michael Rosen MD [Primary Care Provider] - 2 days Interventions: ED Discharge Assessment Last Done: 05/09/21 13:42 Discharge Date/Time: 05/09/21 13:42
[2021-05-09 09:32] LABS: MANUAL DIFF FLAG NO
[2021-05-09] MEDS: methylPREDNISolone Sod Succ 125 MG/2 ML VIAL IVPUSH (09:32)
[2021-05-09] MEDS: Magnesium Sulfate/H2O 2 GM/50 ML PIGGYBACK IV (09:32)
[2021-05-09 09:38] LABS: Basophils Absolute Auto 0.1 X10*3/uL (0.0-0.2); Basophils Percent Auto 0.9 % (0-2); Eosinophils Absolute Auto 0.4 X10*3/uL (0.0-0.4); Eosinophils Percent Auto 5.6 % (0-4); Hematocrit 43.8 % (37-47); Hemoglobin 14.7 g/dl (12.0-16.0); Imm Gran Abs Auto 0.02 X10*3/uL (0.00-0.03); Imm Gran Pct Auto 0.3 % (0.0-0.4); Lymphocytes Absolute Auto 2.4 X10*3/uL (1.2-4.9); Lymphocytes Percent Auto 35.1 % (20-40); Mean Corpuscular HGB Conc 33.6 g/dl (31.0-35.0); Mean Corpuscular Hemoglobin 31.5 pg (27.0-33.0); Mean Platelet Volume 8.8 fL (9.4-12.3); Monocytes Absolute Auto 0.6 X10*3/uL (0.1-1.2); Monocytes Percent Auto 7.9 % (2-11); Neutrophils Absolute Auto 3.5 X10*3/uL (2.0-8.3); Neutrophils Percent Auto 50.2 % (45-73); Platelet Count 310 X10*3/uL (160-400); Red Blood Count 4.66 X10*6/uL (4.20-5.50); Red Cell Distribution Width 11.9 % (11.0-16.0)
[2021-05-09 09:54] LABS: COVID-19 Test Negative (Negative)
[2021-05-09 10:06] LABS: Alanine Aminotransferase 25 U/L (0-31); Albumin Level 4.2 g/dL (3.5-5.0); Alkaline Phosphatase 70 U/L (39-117); Anion Gap 10 (12-20); Aspartate Amino Transferase 24 U/L (5-31); Bilirubin Direct 0.3 mg/dL (0.0-0.5); Bilirubin Total 0.8 mg/dL (0.0-1.0); Blood Urea Nitrogen 13 mg/dL (9-16); Calcium 9.2 mg/dL (8.4-10.2); Carbon Dioxide 28 mmol/L (22-29); Chloride 108 mmol/L (96-108); Creatinine Clr Calc Pharmacy 72.4; Estimated Glomerular Filt Rate > 60; Glucose Random 93 mg/dL (60-115); Potassium 3.8 mmol/L (3.3-5.1); Sodium 142 mmol/L (135-145); Total Protein 6.5 g/dL (6.5-8.0)
[2021-05-09 10:08] LABS: Troponin-I High Sensitivity < 3.5 ng/L (<3.5-17.0)
[2021-05-09 10:53] VITALS: RESP 28; O2SAT 88
--- NOTE | 2021-05-09 11:12 | PHA.MEDREC ---
Pharmacy Consult ? Medication Reconciliation Pharmacy has completed the medication reconciliation.
[2021-05-09 11:30] VITALS: BP 132/80
== END 2021-05-09 13:42 | disposition home or self-care (01) ==
PROVIDERS: Nurse Practitioner Family; Emergency Provider Emergency Medicine; PCP Internal Medicine
DX: J45.41 Moderate persistent asthma with (acute) exacerbation (principal); J44.9 Chronic obstructive pulmonary disease, unspecified; Z79.899 Other long term (current) drug therapy; Z20.822 Contact with and (suspected) exposure to COVID-19
CPT/HCPCS: 36415; 71046; 80048; 80076; 83735; 84484; 85025; 87635; 93005; 94640; 96365; 96366; 96375; 99284; J2930; J3475

== ENCOUNTER → 2021-05-23 09:28 | Outpatient (BNVA) | payer OTHER, SELFPAY | PROVIDERS: PCP Internal Medicine; Visit Provider Internal Medicine | DX: J44.1 Chronic obstructive pulmonary disease with (acute) exacerbation (principal); F41.9 Anxiety disorder, unspecified | CPT/HCPCS: 99212 ==

== ENCOUNTER → 2021-06-13 09:41 | Outpatient (BNVA) | payer OTHER, SELFPAY | PROVIDERS: PCP Internal Medicine; Visit Provider Internal Medicine | DX: J44.9 Chronic obstructive pulmonary disease, unspecified (principal); J30.9 Allergic rhinitis, unspecified; F41.9 Anxiety disorder, unspecified; R09.02 Hypoxemia; Z99.81 Dependence on supplemental oxygen | CPT/HCPCS: 99212 ==

== ENCOUNTER → 2021-08-01 10:05 | Outpatient (BNVA) | payer OTHER, SELFPAY | PROVIDERS: PCP Internal Medicine; Visit Provider Internal Medicine | DX: J44.9 Chronic obstructive pulmonary disease, unspecified (principal); F41.9 Anxiety disorder, unspecified; R09.02 Hypoxemia; Z99.81 Dependence on supplemental oxygen | CPT/HCPCS: 99212 ==

== ENCOUNTER 2021-08-26 12:24 | Emergency (ER) | payer OTHER, SELFPAY ==
--- NOTE | ~2021-08-26 | XR_ITS ---
EXAMINATION: XR CHEST CLINICAL INFORMATION: Aspiration pneumonia. COMPARISON: Portable chest May 09, 2021 TECHNIQUE: Frontal view of the chest was obtained. 2:24 PM FINDINGS: No significant abnormality is noted involving the heart, lungs, mediastinum, bony thorax or soft tissues. XR/XR chest 1V IMPRESSION: Unremarkable examination.
--- NOTE | 2021-08-26 12:32 | ED_ITS ---
HPI - SOB/Dyspnea General Chief Complaint: Dyspnea Stated Complaint: SOB Time Seen by Provider: 08/26/21 12:31 Source: patient and EMS Mode of arrival: EMS Limitations: no limitations History of Present Illness HPI Narrative: Patient comes to the emergency room complaining of shortness of breath that started after choking on water while drinking it. Patient states that it exacerbated an asthma exacerbation. Patient used 2 DuoNebs prior to EMS arrival, EMS gave her 1 albuterol treatment and Solu-Medrol. Patient denies being sick lately, no increased coughing, no fever, no chills. Patient uses 2 L of oxygen for COPD. Patient states she has not had an exacerbation several weeks. On arrival to the ED, patient feels almost back to baseline, requesting 1 albuterol treatment Related Data Previous Rx's Medication Instructions Recorded atenolol 25 mg tablet 25 mg PO DAILY #90 tab 12/20/20 albuterol sulfate 90 mcg/actuation 2 puff INHALATION Q4H PRN #8.5 g 02/12/21 aerosol inhaler albuterol sulfate 1.25 mg/3 mL 2.5 mg (6 mL) INHALATION Q4-6H PRN 03/26/21 solution for nebulization 30 Days #75 ml ipratropium 0.5 mg-albuterol 3 mg 3 ml INHALATION Q6H PRN #180 ml 05/09/21 (2.5 mg base)/3 mL nebulization soln mometasone-formoterol HFA 200 2 puff INHALATION DAILY #13 g 06/12/21 mcg-5 mcg/actuation aerosol inhaler (Dulera) azithromycin 250 mg tablet 250 mg PO 3XW 60 Days #26 tab 06/13/21 cholecalciferol (vitamin D3) 25 25 mcg PO DAILY #90 tab 07/25/21 mcg (1,000 unit) tablet prednisone 10 mg tablet 10 mg PO BID 7 Days #14 tab 08/01/21 azithromycin 250 mg tablet 250 mg PO DAILY 5 Days #6 tab 08/26/21 prednisone 50 mg tablet 50 mg PO DAILY #5 tab 08/26/21 Allergies Allergy/AdvReac Type Severity Reaction Status Date / Time amoxicillin Allergy Severe shortness Verified 08/26/21 12:33 of breath aspirin [ASPIRIN] Allergy Severe ASTHMA, Verified 08/26/21 12:33 shortness of breath ibuprofen [IBUPROFEN] Allergy Severe ASTHMA , Verified 08/26/21 12:33 shortness of breath latex [LATEX] Allergy Severe Rash Verified 08/26/21 12:33 Penicillins Allergy Mild Nausea Verified 08/26/21 12:33 montelukast AdvReac Severe headaches Verified 08/26/21 12:33 Review of Systems Review of Systems: Constitutional : No Weight loss, No Fever, No Chills, No Night Sweats, No Fatigue, No Malaise ENT/Mouth : No Hearing loss, No Ear Pain, No Nasal Congestion, No Sinus Pain, No Hoarseness, No sore throat, No Rhinorrhea, No Swallowing Difficulty Eyes: No Eye Pain, No Swelling, No Redness, No Foreign Body, No Discharge, No Vision Changes Cardiovascular : No Chest Pain, No SOB, No Dyspnea on Exertion, No Orthopnea, No Edema, No Palpitations Respiratory : Coughing and wheezing after choking on water, now resolved. Smoke Exposure, No Dyspnea Gastrointestinal : No Nausea, No Vomiting, No Diarrhea, No Constipation, No abdominal Pain, No Hematochezia, No Melena Genitourinary : no irregular bleeding, No Dysuria, No Urinary Frequency, No Hematuria, No Urinary Incontinence, No Urgency, No Flank Pain, No Urinary Flow Changes, No Hesitancy Musculoskeletal : No joint pain, No Myalgias, No Joint Swelling Skin : No Skin Lesions, No rash Neuro : No Weakness, No Numbness, No Paresthesias, No Loss of Consciousness, No Dizziness, No Headache Psych : No Anxiety/Panic, No Depression, No SI/HI/AH/VH, No Social Issues, Heme/Lymph: No Bruising, No Bleeding,No Lymphadenopathy Endocrine : No Polyuria, No Polydipsia, No Temperature Intolerance [facility] Past Medical History Medical History Allergic rhinosinusitis COPD (chronic obstructive pulmonary disease) Hypoxemia requiring supplemental oxygen Tachycardia Surgical History H/O breast biopsy Family History Family History Other Asthma Social History Social History Household Members: Children Housing: House Do you presently have visiting nurse or other home services: No Alcohol intake: never Patient Tobacco Use Status: Never used Tobacco Second Hand Smoke Exposure: Yes Use of substances other than those prescribed or required for medical reasons: No Advance Directives: No Advance Directives Information Provided: Yes Patient : No service: No Current occupational status: disabled Physical Exam Vital Signs: Vital Signs: Last Vital Signs Temp 97.6 F 08/26/21 12:33 Pulse 81 08/26/21 13:18 Resp 18 08/26/21 12:33 BP 115/67 08/26/21 12:33 Pulse Ox 98 08/26/21 12:33 Oxygen Flow Rate 2 08/26/21 12:33 Body Mass Index 22.4 Const: Other: Appearance: Alert. Oriented X3. No acute distress. Eyes: Pupils equal, round and reactive to light. ENT: Pharynx normal. Neck: Normal inspection. Neck supple. No lymph nodes noted. No crepitus CVS: Normal heart rate and rhythm. Pulses normal. Normal S1 and S2 Respiratory: No respiratory distress. Breath sounds normal. No Wheezing. No rales , on 2 L Abdomen: Soft and nontender. No rigidity. No distention. good BS x4 Skin: Skin warm and dry. Normal skin color. Normal skin turgor. Extremities: No lower extremity edema. No Lacerations. No Rash Neuro: Oriented X 3. No motor deficit. No sensory deficit. Moving all extermities. No slurred speech. Course Course Course Narrative: Patient likely had an asthma exacerbation induced by cold water. Patient's chest x-ray within normal limits. Patient feeling much better after the treatments given by EMS and an albuterol treatment here. COPD exacerbation not suspected. Patient concerned that she may be coughing a little bit more than usual. Due to patient's comorbidity, she will likely benefit from a Z-Ye and a short course of steroids.Patient ready for discharge. Discharge Plan Discharge Clinical Impression: Asthma with exacerbation Patient Disposition: Home, Self-Care Instructions: Asthma (ED) Additional Instructions: Please follow-up with your primary care physician tomorrow. If you have any worsening or new symptoms, please return to the emergency room or call 911 Prescriptions: New azithromycin 250 mg tablet 250 mg PO DAILY 5 Days Qty: 6 RF: 0 prednisone 50 mg tablet 50 mg PO DAILY Qty: 5 RF: 0 No Action atenolol 25 mg tablet 25 mg PO DAILY Qty: 90 RF: 1 albuterol sulfate 90 mcg/actuation HFA aerosol inhaler 2 puff inhalation Q4H PRN (Reason: for wheezing) Qty: 8.5 RF: 3 Dulera 200-5 mcg/actuation HFA aerosol inhaler 2 puff inhalation DAILY Qty: 13 RF: 2 cholecalciferol (vitamin D3) 25 mcg (1,000 unit) tablet 25 mcg PO DAILY Qty: 90 RF: 1 ipratropium-albuterol 0.5 mg-3 mg(2.5 mg base)/3 mL solution for nebulization 3 ml inhalation Q6H PRN (Reason: shortness of breath or wheezing) Qty: 180 RF: 0 albuterol sulfate 1.25 mg/3 mL solution for nebulization 2.5 mg inhalation Q4-6H PRN (Reason: shortness of breath or wheezing) 30 Days Qty: 75 RF: 3 azithromycin 250 mg tablet 250 mg PO 3XW 60 Days Qty: 26 RF: 2 prednisone 10 mg tablet 10 mg PO BID 7 Days Qty: 14 RF: 1
[2021-08-26 12:33] VITALS: BP 115/67; BP 120/70; PULSE 102; PULSE 93; RESP 18; TEMP 36.4; O2SAT 97; O2SAT 98; BMI 22.4
[2021-08-26] MEDS: Albuterol Sulfate (0.083%) 2.5 MG/3 ML VIAL.NEB INHALE (13:17)
[2021-08-26 13:18] VITALS: PULSE 81; O2SAT 97
[2021-08-26 16:00] VITALS: BP 150/75; PULSE 81; RESP 16; TEMP 36.8; O2SAT 98
== END 2021-08-26 16:19 | disposition home or self-care (01) ==
PROVIDERS: Emergency Provider Emergency Medicine; PCP Internal Medicine
DX: J45.901 Unspecified asthma with (acute) exacerbation (principal)
CPT/HCPCS: 71045; 94640; 99284

== ENCOUNTER → 2021-09-19 09:36 | Outpatient (BNVA) | payer OTHER, SELFPAY | PROVIDERS: PCP Internal Medicine; Visit Provider Internal Medicine | DX: J44.9 Chronic obstructive pulmonary disease, unspecified (principal); J30.9 Allergic rhinitis, unspecified; R09.02 Hypoxemia; R00.0 Tachycardia, unspecified; F41.9 Anxiety disorder, unspecified; Z99.81 Dependence on supplemental oxygen | CPT/HCPCS: 99212 ==

== ENCOUNTER → 2021-10-04 09:59 | Outpatient (BNVA) | payer OTHER, SELFPAY | PROVIDERS: PCP Internal Medicine; Visit Provider Internal Medicine | DX: J44.9 Chronic obstructive pulmonary disease, unspecified (principal); J30.9 Allergic rhinitis, unspecified; F41.9 Anxiety disorder, unspecified; R00.0 Tachycardia, unspecified | CPT/HCPCS: 99212 ==

== ENCOUNTER → 2021-11-06 12:27 | Outpatient (BNVA) | payer OTHER, SELFPAY | PROVIDERS: PCP Internal Medicine; Visit Provider Internal Medicine | DX: J44.9 Chronic obstructive pulmonary disease, unspecified (principal); R09.02 Hypoxemia; J30.9 Allergic rhinitis, unspecified; F41.9 Anxiety disorder, unspecified; Z99.81 Dependence on supplemental oxygen | CPT/HCPCS: 99212 ==

== ENCOUNTER → 2021-12-17 09:32 | Outpatient (BNVA) | payer OTHER, SELFPAY | PROVIDERS: PCP Internal Medicine; Visit Provider Internal Medicine | DX: J44.9 Chronic obstructive pulmonary disease, unspecified (principal); J30.9 Allergic rhinitis, unspecified; R09.02 Hypoxemia; F41.9 Anxiety disorder, unspecified; Z99.81 Dependence on supplemental oxygen | CPT/HCPCS: 99212 ==